=== PATIENT | female | born 1950 | race Caucasian/White ===

== ENCOUNTER 2018-03-03 00:36 | Outpatient (CLI) | payer MEDICARE, BC, SELFPAY ==
--- NOTE | 2018-03-03 07:39 | DI.US_ITS ---
SYMPTOMS/DIAGNOSIS: VAGINAL BLEEDING, POSTMENOPAUSAL, N95.0 PELVIC ULTRASOUND: Comparison is made with February,. A transabdominal exam was performed. Images are limited by lack of bladder distention. The uterus is not well seen due to pessary. The right ovary was not seen. The left ovary appears normal in size. There is no evidence of free fluid. Prominence of the right renal collecting system is again noted, unchanged from the previous exams. IMPRESSION: Limited exam. The endometrial stripe is not visualized. The right ovary is also unable to be visualized.
== END 2018-03-03 00:56 ==
PROVIDERS: PCP Nurse Practitioner Family; Visit Provider Obstetrics & Gynecology
DX: N95.0 Postmenopausal bleeding (principal)
CPT/HCPCS: 76856

== ENCOUNTER → 2018-04-09 12:57 | Outpatient (BNVA) | payer MEDICARE, BC, SELFPAY | PROVIDERS: PCP Nurse Practitioner Family; Visit Provider Internal Medicine Cardiovascular Disease | DX: I25.10 Atherosclerotic heart disease of native coronary artery without angina pectoris (principal); I10 Essential (primary) hypertension; E11.9 Type 2 diabetes mellitus without complications; Z79.84 Long term (current) use of oral hypoglycemic drugs; E78.5 Hyperlipidemia, unspecified | CPT/HCPCS: 99213 ==

== ENCOUNTER 2018-08-18 10:11 | Outpatient (CLI) | payer MEDICARE, BC, SELFPAY ==
[2018-08-18 10:41] LABS: Bilirubin Negative (Negative); Blood Trace-intact (Negative); Clarity Clear; Glucose Negative (Negative); Ketones Negative (Negative); Leukocyte Esterase Small (Negative); Nitrite Negative (Negative); Specific Gravity 1.015 (1.005-1.025); Urobilinogen 0.2 EU/dL (Up TO 0.2); pH 5.5 (5-8)
[2018-08-18 10:54] LABS: Bacteria Few HPF (Negative); Crystals Negative HPF (Negative); Epithelial Cells Few HPF (Negative); Mucus Moderate (Negative); Other Cells Few Renal (Negative)
[2018-08-18 10:55] LABS: C & S Indicated? C&S Done As Ordered; Casts Negative LPF (Negative)
== END 2018-08-18 10:31 ==
PROVIDERS: PCP Nurse Practitioner Family; Visit Provider Obstetrics & Gynecology
DX: N39.46 Mixed incontinence (principal)
CPT/HCPCS: 81003; 81015; 87086

== ENCOUNTER 2018-09-18 09:36 | Outpatient (REF) | payer MEDICARE, BC, SELFPAY ==
[2018-09-18 13:28] LABS: HCT 40.9 % (36.0-46.0); HGB 13.4 g/dL (12.0-15.5); Mean Corp. HGB Concentration 32.8 g/dL (32.0-36.0); Mean Corpuscular Hemoglobin 30.9 pg (27.0-33.0); Mean Corpuscular Volume 94.2 fL (80-95); Mean Platelet Volume 10.1 fL (8.0-11.0); Platelet Count 244 x1000/uL (130-400); RBC 4.34 m/cumm (4.00-5.20); RBC Distribution Width 13.5 % (11.7-14.6); White Blood Cell Count 4.63 k/cumm (4.4-10.8)
[2018-09-18 13:33] LABS: Iron 71 ug/dL (50-175); Total Iron Binding Capacity 259 ug/dL (250-450); Transferrin Sat 27 % (15-50)
[2018-09-18 13:48] LABS: Anion Gap 8.6 mmol/L (3-11); BUN 18 mg/dL (7-18); CO2 29.4 mmol/L (21.0-32.0); CREATININE 0.61 mg/dL (0.55-1.02); Chloride 104 mmol/L (98-107); Cholesterol 282 mg/dL (50-200); Ferritin 26 ng/mL (8-388); Glucose 80 mg/dL (70-100); HDL Cholesterol 97 mg/dL (40-60); LDL CHOLESTEROL 160 mg/dL (<100); Sodium 142 mmol/L (136-145); TSH (W/Ref FT4) 3.14 uIU/mL (0.358-3.74); Triglyceride 58 mg/dL (30-150)
[2018-09-18 13:54] LABS: Calcium 8.8 mg/dL (8.5-10.1)
[2018-09-21 07:40] LABS: Vitamin D 25 Total 48.9 ng/ml (30-100)
== END 2018-09-18 09:56 ==
LOC: NCHCN 09:36
PROVIDERS: PCP Nurse Practitioner Family; Visit Provider Nurse Practitioner Family
DX: E55.9 Vitamin D deficiency, unspecified (principal); D50.9 Iron deficiency anemia, unspecified; E11.9 Type 2 diabetes mellitus without complications; E03.9 Hypothyroidism, unspecified; E78.5 Hyperlipidemia, unspecified
CPT/HCPCS: 80048; 80061; 82306; 83721; 85027; 82728; 83540; 83550; 84443

== ENCOUNTER → 2018-12-24 08:57 | Outpatient (BNVA) | payer MEDICARE, BC, SELFPAY | PROVIDERS: Visit Provider Internal Medicine Cardiovascular Disease | DX: I25.10 Atherosclerotic heart disease of native coronary artery without angina pectoris (principal); I10 Essential (primary) hypertension; E78.2 Mixed hyperlipidemia; E11.9 Type 2 diabetes mellitus without complications; Z79.84 Long term (current) use of oral hypoglycemic drugs | CPT/HCPCS: 99214 ==

== ENCOUNTER 2019-03-24 01:08 | Outpatient (CLI) | payer MEDICARE, BC, SELFPAY ==
[2019-03-24 10:34] LABS: Calculated LDL 53 mg/dL; Cholesterol 157 mg/dL (50-200); HDL Cholesterol 96 mg/dL (40-60); Triglyceride 44 mg/dL (30-150)
== END 2019-03-24 01:28 ==
PROVIDERS: PCP Nurse Practitioner Family; Visit Provider Internal Medicine Cardiovascular Disease
DX: E78.5 Hyperlipidemia, unspecified (principal); I25.10 Atherosclerotic heart disease of native coronary artery without angina pectoris
CPT/HCPCS: 36415; 80061

== ENCOUNTER 2019-11-30 09:41 | Outpatient (REF) | payer MEDICARE, BC, SELFPAY ==
[2019-11-30 14:37] LABS: HCT 39.7 % (36.0-46.0); Mean Corp. HGB Concentration 32.7 g/dL (32.0-36.0); Mean Corpuscular Hemoglobin 29.3 pg (27.0-33.0); Mean Corpuscular Volume 89.4 fL (80-95); Mean Platelet Volume 10.3 fL (8.0-11.0); Platelet Count 252 x1000/uL (130-400); RBC 4.44 m/cumm (4.00-5.20); RBC Distribution Width 15.2 % (11.7-14.6); White Blood Cell Count 4.63 k/cumm (4.4-10.8)
[2019-11-30 14:42] LABS: Anion Gap 5.1 mmol/L (3-11); BUN 13 mg/dL (7-18); CO2 30.9 mmol/L (21.0-32.0); CREATININE 0.62 mg/dL (0.55-1.02); Calcium 9.1 mg/dL (8.5-10.1); Chloride 104 mmol/L (98-107); Glucose 97 mg/dL (74-106); Sodium 140 mmol/L (136-145); TSH (W/Ref FT4) 1.54 uIU/mL (0.36-3.74)
== END 2019-11-30 10:01 ==
LOC: NCHCN 09:41
PROVIDERS: PCP Nurse Practitioner Family; Visit Provider Nurse Practitioner Family
DX: E03.9 Hypothyroidism, unspecified (principal); D50.9 Iron deficiency anemia, unspecified; I10 Essential (primary) hypertension
CPT/HCPCS: 80048; 85027; 84443

== ENCOUNTER → 2020-01-28 08:07 | Outpatient (BNVA) | payer MEDICARE, BC, SELFPAY | PROVIDERS: PCP Nurse Practitioner Family; Referring Provider Nurse Practitioner Family; Visit Provider Physical Therapy Assistant | DX: Z12.11 Encounter for screening for malignant neoplasm of colon (principal); E11.9 Type 2 diabetes mellitus without complications; I10 Essential (primary) hypertension; Z79.84 Long term (current) use of oral hypoglycemic drugs ==

== ENCOUNTER 2020-02-14 10:14 | Day surgery (SDC) | payer MEDICARE, BC, SELFPAY ==
--- NOTE | 2020-02-14 06:49 | W.COLOREPORT ---
Date of service: 02/14/20 Time of Service: 11:37 Colonoscopy Report Date of procedure: 02/14/20 Pre-op diagnosis general: Colon Cancer Screening Post-op diagnosis procedure note: same (moderate sigmoid diverticulosis) Procedure: Colonoscopy Surgeon: Radha Betancur Anesthesia proc note operative: other (General/ ASA 2/Mateus Polo CRNA) Estimated blood loss (mL): 0 Pathology: none sent Complications: None Disposition: same day Indications: The patient is here for Colonoscopy pre-op. Her last screening was in 2008 and was unremarkable. She has no family history of colon cancer. She has not had any bowel habit changes. -Discussed colonoscopy bowel prep as well as the procedure. Discussed possible complications of the procedure to include bleeding, pain, perforation, missed small lesion/polyp, sore throat, aspiration and adverse reaction to the medications. Questions were answered to patient?s satisfaction. No guarantees were implied or given. Prep: Miralax/Dulcolax Procedure Start Time: 11:37 Procedure End Time: 12:01 Retraction Time: 12 minutes Findings: Moderate sigmoid diverticulosis Procedure Description: After informed consent was obtained the patient was taken to the procedure room and placed in a left decubitous position. Monitors were applied and a time out was done. The patients name, date of , procedure, allergies to medications and metal in their body was reviewed. The patient was then sedated. Once sedated and comfortable a rectal exam was done. External exam was normal. Internal exam revealed a normal sphincter tone and no palpable masses. The scope was then introduced and retro-flexed. No internal hemorrhoids were identified. The scope was then advanced to the cecum with some difficulty due to a tortuous colon. The ileocecal vlave and appendiceal orifice were identified. The prep was good. The scope was then slowly retracted over 12 minutes back into the rectum. There were no polyps. There was moderate diverticulosis of the sigmoid colon. The scope was removed and the patient was woken up and taken back to Same day surgery in stable condition. The patient tolerated the procedure well and there were no immediate complications. Follow up: The patient should follow up in 10 years unless they develop changes in bowel habits or other new gastrointestinal complaints.
--- NOTE | 2020-02-14 06:50 | W.PM.DSUDISC ---
Discharge Plan Disposition Patient Disposition: HOME Condition: Good Discharge Details Reason For Visit: Colonoscopy Attending Provider: Radha Betancur Primary Care Provider: Mini Hernandez Home Meds and New Rx's Prescriptions: Continued estradiol 0.01 % (0.1 mg/gram) cream 1 gm VG .2X/WEEK RF: 0 olopatadine 0.1 % drops 1 drp OP BID RF: 0 ezetimibe 10 mg tablet 10 mg PO DAILY 90 Days Qty: 90 RF: 2 ascorbic acid (vitamin C) 500 mg tablet extended release 1,000 mg PO DAILY RF: 0 coenzyme Q10 [Co Q-10] 10 mg capsule 10 mg PO ONCE RF: 0 multivitamin [One Daily] 1 EACH tablet 1 ea PO DAILY RF: 0 aspirin [Ecotrin Low Strength] 81 MG tablet,delayed release (DR/EC) 1 tab PO DAILY Qty: 190 RF: 4 nitroglycerin [Nitrostat] 0.4 MG tablet, sublingual 0.4 mg Sublingual PRN Qty: 25 RF: 4 Zyrtec 10 MG capsule 10 mg PO DAILY Qty: 90 RF: 4 FLONASE 16 GM SPRAY.SUSP 1 spray NS DAILY PRNQty: 3 RF: 4 levothyroxine [Synthroid] 100 MCG tablet 100 mcg PO DAILY Qty: 90 RF: 4 losartan [Cozaar] 50 MG tablet 50 mg PO QAM Qty: 90 RF: 4 metformin 500 MG tablet 500 mg PO ONCE RF: 0 cholecalciferol (vitamin D3) 1,000 UNIT tablet 1,000 unit PO DAILY Qty: 3 RF: 0 amlodipine 5 mg tablet 2.5 mg PO DAILY Qty: 90 RF: 3 Discontinued polyethylene glycol 3350 17 gram/dose powder 238 g PO ONCE Qty: 238 RF: 0 bisacodyl [Dulcolax (bisacodyl)] 5 mg tablet,delayed release (DR/EC) 5 mg PO ONCE Qty: 4 RF: 0 No Action atorvastatin 80 mg tablet 80 mg PO HS RF: 0 Discharge Instructions Instructions: Diverticulosis (DC) Additional Instructions: Findings: moderate diverticulosis Follow up: 10 years Please call if you develop: fevers >101.5 Nausea or Vomiting Abdominal pain that is not transient DAY SURGERY UNIT POST ENDOSCOPY INSTRUCTIONS 1. Because there will be medication in your system for the next 24 hours, you may feel a little sleepy. Your coordination will be affected. Therefore: a. Do not drive or operate dangerous equipment for 24 hours. b. Do not drink alcohol beverages for 24 hours (not even beer). c. Plan to go home and rest for the day. 2. Generally there are no restrictions on your activity after a day or so has gone by, but you may feel a bit fatigued for a few days. 3 After you arrive home you may have a light meal and return to a normal diet as you can tolerate it without feeling sick to your stomach. 4. After surgery, you may feel pain or discomfort. This should be only transient, but if it persists please contact your doctor. 5. If there are any questions regarding the findings of your procedure, please feel free to contact your doctor. 6. If you are unable to contact your doctor with a problem, contact the hospital at [phone]. 7. Continue all your regular medications unless directed otherwise. I understand the above instructions and have no questions. Signature of Patient or Responsible Adult Escort Date/Time Name of Responsible Adult Escort Signature of Nurse Date/Time Activity:: Activity as Tolerated Diet:: High Fiber diet Discharge Orders Discharge Orders: Discharge Order (Routine); Ordered 02/14/20 Ordered By: Radha Betancur
[2020-02-14 10:38] VITALS: BP 126/74; PULSE 80; RESP 18; TEMP 36.5; O2SAT 98
[2020-02-14] MEDS: Lactated Ringers 1,000 ML 80 ML IV ×2 (11:18→11:39)
[2020-02-14 12:35] VITALS: BP 119/70; PULSE 82; RESP 17; TEMP 36.2; O2SAT 99
== END 2020-02-14 13:08 | disposition home or self-care (01) ==
LOC: SUR 10:15
PROVIDERS: PCP Nurse Practitioner Family; Visit Provider Surgery
PROC: 0DJD8ZZ Inspection of Lower Intestinal Tract, Via Natural or Artificial Opening Endoscopic (ICD-10-PCS; CPT 45378; principal; 2020-02-14 11:30)
DX: Z12.11 Encounter for screening for malignant neoplasm of colon (principal); E11.9 Type 2 diabetes mellitus without complications; E03.9 Hypothyroidism, unspecified; I10 Essential (primary) hypertension; K57.30 Diverticulosis of large intestine without perforation or abscess without bleeding
CPT/HCPCS: G0121; J2001

== ENCOUNTER 2020-05-30 10:46 | Outpatient (REF) | payer MEDICARE, BC, SELFPAY ==
[2020-05-30 14:21] LABS: Hemoglobin A1C 6.4 % (<5.7)
[2020-05-30 14:28] LABS: Calculated LDL 59 mg/dL (<100); Cholesterol 178 mg/dL (<200); HDL Cholesterol 109 mg/dL (40-60); Triglyceride 54 mg/dL (<150)
== END 2020-05-30 11:06 ==
LOC: NCHCN 10:46
PROVIDERS: PCP Nurse Practitioner Family; Visit Provider Nurse Practitioner Family
DX: E11.9 Type 2 diabetes mellitus without complications (principal); E78.5 Hyperlipidemia, unspecified
CPT/HCPCS: 80061; 83036

== ENCOUNTER 2020-06-29 11:00 | Outpatient (CLI) | payer MEDICARE, BC, SELFPAY ==
--- NOTE | 2020-06-29 11:15 | RT.EKG_ITS ---
APPROVED REPORT Exam: Resting ECG Patient Location: O HR:88 bpm ECG Measurements Heart Rate 88 AXIS WA 120 P 44 QRSd 87 QRS -9 QT 369 T -7 QTc 447 Conclusion Sinus rhythm...normal P axis, V-rate 50- 99 Multiform ventricular premature complexes...short R-R, variable morphology Probable left atrial enlargement...P >50mS, <-0.10mV V1 Low voltage, precordial leads...precordial leads <1.0mV Borderline T abnormalities, inferior leads...T flat/neg, II III aVF Baseline wander in lead(s) V4
== END 2020-06-29 11:01 | disposition home or self-care (01) ==
LOC: DI.CARD 11:18
PROVIDERS: PCP Nurse Practitioner Family; Referring Provider Nurse Practitioner Family; Visit Provider Internal Medicine Cardiovascular Disease
DX: I25.10 Atherosclerotic heart disease of native coronary artery without angina pectoris (principal); I25.2 Old myocardial infarction
CPT/HCPCS: 93010

== ENCOUNTER → 2020-06-29 11:00 | Outpatient (BNVA) | payer MEDICARE, BC, SELFPAY | PROVIDERS: PCP Nurse Practitioner Family; Referring Provider Nurse Practitioner Family; Visit Provider Internal Medicine Cardiovascular Disease | DX: I25.10 Atherosclerotic heart disease of native coronary artery without angina pectoris (principal); E78.2 Mixed hyperlipidemia; I10 Essential (primary) hypertension | CPT/HCPCS: 99214 ==

== ENCOUNTER 2020-08-02 02:34 | Outpatient (CLI) | payer MEDICARE, BC, SELFPAY ==
--- NOTE | 2020-08-02 10:12 | DI.US_ITS ---
APPROVED REPORT EXAM: Comprehensive 2D, Doppler, and color-flow Echocardiogram Patient Location: Out-Patient Indications: SOB, CAD Other Information Study Quality: Adequate Conclusion Left Ventricle : The left ventricle is normal size. The left ventricular systolic function is normal. The left ventricular ejection fraction is within the normal range. There is normal left ventricular wall thickness. There is normal LV segmental wall motion. The left ventricular diastolic function is normal. LVEF is 55%. Right Ventricle : The right ventricle is normal size. The right ventricular systolic function is norm al. The RVSP is 26.5mmHg. Atria : The left atrium size is normal. The right atrium size is normal. Mitral Valve : Moderate mitral annular calcification. Mild mitral regurgitation. No evidence of le l valve stenosis. Great Vessels : The aortic root is normal in size. The ascending aorta is mildly dilated. Aortic arch is normal in caliber. IVC is normal in size and collapses >50% with inspiration. See remainder of study for further details. Wall motion Left Ventricle The left ventricle is normal size. The left ventricular systolic function is normal. The left ventric ular ejection fraction is within the normal range. There is normal left ventricular wall thickness. T here is normal LV segmental wall motion. The left ventricular diastolic function is normal. There is no ventricular septal defect visualized. LVEF is 55%. Right Ventricle The right ventricle is normal size. The right ventricular systolic function is normal. The RVSP is 26 .5mmHg. Atria The left atrium size is normal. The right atrium size is normal. The interatrial septum is intact wit h no evidence for an atrial septal defect. Aortic Valve The Aortic valve is sclerotic. Aortic valve is trileaflet. There is no aortic valvular stenosis. Trac e aortic regurgitation. Mitral Valve Moderate mitral annular calcification. No evidence of mitral valve stenosis. Mild mitral regurgitatio n. Tricuspid Valve The tricuspid valve is normal in structure. There is no tricuspid valve stenosis. Trace tricuspid reg urgitation. Pulmonic Valve The pulmonary valve is normal in structure. There is no pulmonic valvular stenosis. Trace pulmonic re gurgitation. Great Vessels The aortic root is normal in size. The ascending aorta is mildly dilated. Aortic arch is normal in ca liber. IVC is normal in size and collapses >50% with inspiration. Pericardium There is no pericardial effusion. 2D Dimensions IVSD d PLAX 0.82 cm F: 0.6-1.0 LV Vol A2C d MOD 132.4 mL LVPW d PLAX 0.85 cm F: 0.6 - 1.0 LV Vol A4C d MOD 125.7 mL LVID d PLAX 5.09 cm F: 3.8 - 5.2 LA vol/ BSA A2C s A-L 22.8 mL/m2 LVDs 3.65 cm F: 2.2 - 3.5 LA vol/ BSA A4C s A-L 30.1 mL/m2 Ao Root d 2.86 cm F: 2.7 - 3.3 LA Vol/ BSA Biplane s A-L 26.9 mL/m2 RA Area A4C 11.64 cm2 LA Area A4C s MOD 17.87 cm2 RA Vol/ BSA A4C s A-L 13.2 mL/m2 LA Area A2C s MOD 15.17 cm2 Ao Asc Diam d 3.67 cm F: 2.3 - 3.1 LV EF A4C MOD 55.1 % LV EF Teichholz 53.8 % LV EF A2C MOD 52.5 % LVEF (Berumen's) 53.54 % F: 54 - 74 LV EF Biplane MOD 53.5 % LV Volume 100.92 mL F: 46 - 106 SV 69.18 mL LV Volume Index 56.69 mL/m2 F: 29 - 61 SV Index 38.89 mL/m2 LV Vol Biplane MOD 129.2 mL FS 27.90 % M-Mode TAPSE 2.02 cm (M/F) >1.7 LV Diastology MV E' medial 0.061 (>0.07 m/s) E/A Ratio 0.8 LV E/e MED 12.30 (<14) MV E Vmax 0.75 (0.4-1.3 m/s) MV E' lateral 0.103 (>0.1 m/s) MV A Vmax 0.95 (0.4-1.3 m/s) LV E/e LAT 7.30 (<14) MV E/A Ratio 0.77 MV E/E' medial 12.34 MV E/E' lateral 7.34 Aortic Valve LVOT Area 3.21 cm2 AoV Area Vmax 2.69 cm2 LVOT Vmax 1.13 m/s AoV Area/ BSA (Vmax) 1.51 cm2/m2 LVOT Mean Danyel. 0.74 m/s LOUISE Mean Danyel. 2.37 cm2 LVOT Peak Grad 5.1 mmHg LOUISE Mean Danyel. Index 1.33 cm2/m2 LVOT Mean Grad 2.6 mmHg LVOT VTI 0.262 m LVOT Diam s 2.00 cm AoV Vmax 1.35 m/s Velocity Ratio 0.83 AoV Mean Danyel. 0.99 m/s AoV Peak Grad 7.3 mmHg LVOT SV 84.03 mL AoV Mean Grad 4.3 mmHg AoV VTI 0.293 m AoV Area VTI 2.87 cm2 AoV Area/ BSA (VTI) 1.61 cm/m2 Mitral Valve MV DT 178 (160-240 msec) MR Vmax 3.00 m/s MV PHT 52 msec MR VTI 1.096 m MV Area PHT 4.26 cm2 MR Peak Grad 36.0 mmHg MV VTI 0.266 m MR Mean Grad 30.4 mmHg MV VTI Annulus 0.266 m MR PISA Radius 0.30 cm MV Area VTI 3.16 (4.0-6.0 cm2) MR EROA 0.06 cm2 MR Aliasing Velocity 0.35 m/s MR PISA 0.55 cm2 Pulmonary Valve PV Vmax 0.88 (0.5-1.5 m/s) RVOT Peak Gr. 1.44 mmHg PV Peak Grad 3.1 mmHg RVOT Mean Gr. 0.80 mmHg PV Mean Grad 1.9 mmHg RVOT VTI 0.118 m PV VTI 0.184 m RVOT Vmax 0.60 m/s Tricuspid Valve TR Peak Grad 23.5 mmHg TR Vmax 2.42 m/s RA Pressure 3.00 mmHg RVSP (TR) 26.5 mmHg
== END 2020-08-02 02:54 ==
PROVIDERS: PCP Nurse Practitioner Family; Visit Provider Internal Medicine Cardiovascular Disease
DX: I25.10 Atherosclerotic heart disease of native coronary artery without angina pectoris (principal); I34.0 Nonrheumatic mitral (valve) insufficiency; I77.810 Thoracic aortic ectasia
CPT/HCPCS: 93306

== ENCOUNTER 2020-08-10 01:28 | Outpatient (CLI) | payer MEDICARE, BC, SELFPAY ==
--- NOTE | 2020-08-10 07:00 | DI.NM_ITS ---
APPROVED REPORT Exam: Exercise Treadmill Patient Location: Out-Patient Room/Bed: Stress Nurse: Zenaida Kitchen RN Ordering Provider:DARIAN BORREGO, Contact Number: [phone] BMI: 24.88 Baseline Rhythm: Sinus Rhythm Comment: occasional PVC Indications: SOB, CAD Medical History Medical History: CAD s/p RCA stent, hypertension, hyperlipidemia, diabetes, hypothyroidism, depressio n, osteoarthritis Cardiac Medications: Amlodipine, aspirin, atorvastatin, levothyroxine, metformin, nitroglycerin SL, o lopatadine Allergies: lisinopril, prednisone, ramipril Cardiac Risk Factors: Hypertension, hyperlipidemia, diabetes, asthma, CAD, family hx Previous Cardiac Procedures: RCA stent (1999) Pretest Chest Pain Characteristics: None Exercise History: Physically active Physical Disabilities: None Lung Sounds: Clear to auscultation Heart Sounds: Regular Stress Test Details Test: Exercise stress testing was performed using a Elfego protocol. Nuclear Acquisition: Rest Tc-99m/Stress Tc-99m 1 day Rest Isotope: Tc-99m Sestamibi. Dose: 11.2 Date: 08/10/2020 Injection Time: 0900 Stress Isotope: Tc-99m Sestamibi. Dose: 36.0 Date: 08/10/2020 Injection Time: 1042 HR Resting HR Supine: 74 bpm Max Heart Rate (APMHR): 150 bpm Resting HR Standin bpm Target HR (85% APMHR): 127 bpm Max HR Achieved: 160 bpm % of APMHR: 106 Recovery HR: 96 bpm HR response to stress: Normal HR response to stress BP Resting BP Supine: 142/84 mmHg Resting BP Standin/88 mmHg Max BP: 178/78 mmHg Recovery BP: 134/80 mmHg BP response to stress: Normal blood pressure response to stress. ECG Resting ECG: Sinus Rhythm Ectopy: Occasional PVC Stress ECG: Sinus Tachycardia ST Change: No significant ST segment changes noted Arrhythmia: Frequent multifocal PVCs, prolonged duration of bigeminy as exercise capacity increase d Recovery ECG: Sinus Rhythm Recovery ST Change: No significant ST segment changes noted Recovery Arrhythmia: Frequenct multifocal PVCs, bigeminy Clinical Reason for Termination: Fatigue Stress Symptoms: Dyspnea, General Fatigue Exercise duration: 9 min03 sec Highest Stage Reached: Stage 4: 4.2 mph at 16% grade. Exercise capacity: 10.22 METs Rate Pressure Product: 51737 Stress ECG Conclusion 1. The patient exercised for 9 minutes (10 METS). The patient no symptoms suggestive of ischemia. 2. The patient's blood pressure and heart rate augmented appropriately. 3. There is no evidence of ischemia on the ECG portion exam. Patient did have frequent PVCs. Stress Test Summary STAGE Time (mins) Speed (mph) Grade (%) HR BP SYMPTOMS METS Supine 74 142/84 Standing 86 152/88 1 3 1.7 10 130 160/88 4.6 2 6 2.5 12 145 174/80 mild/moderate SOB, SPO2 98% 7 1 min recovery 146 178/78 symptoms resolved 3 min recovery 111 158/80 6 min recovery 96 134/80 MPI Conclusion The ejection fraction was 47% with stress with hypokinesis of the basal and mid inferior wall. There is a small predominantly fixed perfusion defect of the basal inferior wall as well as the apex. This represents an abnormal stress test.
== END 2020-08-10 01:48 ==
PROVIDERS: PCP Nurse Practitioner Family; Visit Provider Internal Medicine Cardiovascular Disease
DX: I25.10 Atherosclerotic heart disease of native coronary artery without angina pectoris (principal); R06.02 Shortness of breath; I10 Essential (primary) hypertension; E78.5 Hyperlipidemia, unspecified; E11.9 Type 2 diabetes mellitus without complications; J45.909 Unspecified asthma, uncomplicated; Z82.49 Family history of ischemic heart disease and other diseases of the circulatory system
CPT/HCPCS: 78452; 93016; 93018; 93017

== ENCOUNTER → 2020-08-15 13:03 | Outpatient (BNVA) | payer MEDICARE, BC, SELFPAY | PROVIDERS: PCP Nurse Practitioner Family; Referring Provider Nurse Practitioner Family; Visit Provider Internal Medicine Cardiovascular Disease | DX: I25.10 Atherosclerotic heart disease of native coronary artery without angina pectoris (principal); Z95.5 Presence of coronary angioplasty implant and graft; I10 Essential (primary) hypertension; I49.3 Ventricular premature depolarization; E78.5 Hyperlipidemia, unspecified | CPT/HCPCS: 99214 ==

== ENCOUNTER 2020-09-08 10:52 | Outpatient (REF) | payer MEDICARE, BC, SELFPAY ==
[2020-09-08 15:27] LABS: HCT 39.1 % (36.0-46.0); HGB 12.9 g/dL (11.2-15.7); MCH 30.6 pg (27.0-33.0); MCV 92.9 fL (80-95); Platelet Count 236 10^3/uL (130-400); RBC 4.21 10^6/uL (3.93-5.22); RDW 13.3 % (11.7-14.6); RDW-SD 45.7 fL
== END 2020-09-08 10:53 | disposition home or self-care (01) ==
LOC: NCHCN 10:52
PROVIDERS: PCP Nurse Practitioner Family; Visit Provider Nurse Practitioner Family
DX: R06.09 Other forms of dyspnea (principal)
CPT/HCPCS: 85027

== ENCOUNTER 2020-10-12 03:56 | Outpatient (CLI) | payer MEDICARE, BC, SELFPAY ==
--- NOTE | 2020-10-27 08:28 | ZIOP_ITS ---
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 Rhythm throughout with sinus. Average heart rate was 92, minimum 56, maximum 142 there were rare atrial Premature beats. There were a total of 13 episodes of self-limited atrial runs, the longest of which was 9 beats in duration There were frequent premature ventricular contractions. They comprised 8.72% of total beats. Periods of bigeminy and trigeminy were noted. There were several very brief runs of nonsustained ventricular tachycardia, less than 5 beats in length. There was one 12 beat run of nonsustained ventricular tachycardia which was asymptomatic There was no atrial fibrillation, no high-grade AV block, no pauses greater than 3 seconds Most patient symptoms corresponded to sinus rhythm and sinus tachycardia, occasionally to PVCs
== END 2020-10-12 03:57 | disposition home or self-care (01) ==
LOC: RT 03:57
PROVIDERS: PCP Nurse Practitioner Family; Visit Provider Nurse Practitioner Family
DX: I49.3 Ventricular premature depolarization (principal)
CPT/HCPCS: 93246

== ENCOUNTER 2020-10-27 08:28 | Outpatient (CLI) | payer MEDICARE, BC, SELFPAY | END 2020-10-27 08:29 | LOC: CARDO 12-29 15:57 | PROVIDERS: PCP Nurse Practitioner Family; Referring Provider Nurse Practitioner Family; Visit Provider Internal Medicine Cardiovascular Disease | DX: I49.3 Ventricular premature depolarization (principal); I49.1 Atrial premature depolarization; I47.2 Ventricular tachycardia | CPT/HCPCS: 93248 ==

== ENCOUNTER → 2020-11-10 09:13 | Outpatient (BNVA) | payer MEDICARE, BC, SELFPAY | PROVIDERS: PCP Nurse Practitioner Family; Referring Provider Nurse Practitioner Family; Visit Provider Internal Medicine Cardiovascular Disease | DX: I25.10 Atherosclerotic heart disease of native coronary artery without angina pectoris (principal); E11.9 Type 2 diabetes mellitus without complications; I10 Essential (primary) hypertension; Z79.899 Other long term (current) drug therapy | CPT/HCPCS: 99214 ==

== ENCOUNTER 2020-11-28 20:00 | Outpatient (REF) | payer MEDICARE, BC, SELFPAY ==
[2020-11-28 23:54] LABS: BUN 15 mg/dL (7-18); CREATININE 0.7 mg/dL (0.55-1.02); Calcium 8.7 mg/dL (8.5-10.1); Chloride 106 mmol/L (98-107); Glucose 108 mg/dL (74-106); Potassium 4.1 mmol/L (3.5-5.1); Sodium 142 mmol/L (136-145); TSH 0.79 uIU/mL (0.36-3.74)
== END 2020-11-28 20:01 | disposition home or self-care (01) ==
LOC: NCHCN 20:00
PROVIDERS: PCP Nurse Practitioner Family; Visit Provider Nurse Practitioner Family
DX: E03.9 Hypothyroidism, unspecified (principal)
CPT/HCPCS: 80048; 84443

== ENCOUNTER 2020-12-04 15:22 | Outpatient (CLI) | payer MEDICARE, BC, SELFPAY ==
--- NOTE | 2020-12-04 15:20 | DI.RAD_ITS ---
Exam(s) XR KNEE RT 4V AP,LAT,SMOOTH,PAT EXAM: XR KNEE RT 4V AP,LAT,SMOOTH,PAT CLINICAL HISTORY: new pain. TECHNIQUE: 2D digital imaging was performed. COMPARISON: CR RIGHT KNEE 3 VIEWS from 09/20/2014 FINDINGS: There is no evidence of fracture but there does appear to be a joint effusion. Significant degenerat keyanna changes are noted in medial compartment including joint space narrowing and marginal osteophytes. Lesser amount of narrowing is noted in the lateral compartment. Moderate degenerative changes note d in the patellofemoral compartment. No significant osseous lesions. IMPRESSION: Degenerative changes. DATA REPOSITORY: RADIATION DOSE DELIVERED:
--- NOTE | 2020-12-04 15:23 | DI.RAD_ITS ---
Exam(s) XR KNEE LT 4V AP,LAT,SMOOTH,PAT EXAM: XR KNEE LT 4V AP,LAT,SMOOTH,PAT CLINICAL HISTORY: new pain. TECHNIQUE: 2D digital imaging was performed. COMPARISON: CR XR KNEE RT 4V AP,LAT,SMOOTH,PAT from 12/04/2020 FINDINGS: There is no evidence fracture although there does appear to be small joint effusion. Moderate degene rative changes are noted in the medial compartment including joint space narrowing and marginal osteo phytes. Lateral compartment appears unremarkable. Mild degenerative changes in the patellofemoral c ompartment. No osseous lesions IMPRESSION: Degenerative changes. DATA REPOSITORY: RADIATION DOSE DELIVERED:
== END 2020-12-04 15:23 | disposition home or self-care (01) ==
LOC: DIORS 15:23
PROVIDERS: PCP Nurse Practitioner Family; Referring Provider Nurse Practitioner Family; Visit Provider Student in an Organized Health Care Education/Training Program
DX: M17.11 Unilateral primary osteoarthritis, right knee (principal); M17.12 Unilateral primary osteoarthritis, left knee; M25.561 Pain in right knee; M25.562 Pain in left knee
CPT/HCPCS: 99215; 73564

== ENCOUNTER 2021-02-06 10:28 | Outpatient (CLI) | payer MEDICARE, BC, SELFPAY ==
--- NOTE | 2021-02-06 10:00 | DI.RAD_ITS ---
Exam(s) XR STANDING ALIGNMENT EXAM: XR STANDING ALIGNMENT CLINICAL HISTORY: preop. TECHNIQUE: 2D digital imaging was performed. Four views were obtained. COMPARISON: CR XR KNEE RT 4V AP,LAT,SMOOTH,PAT from 12/04/2020 CR XR KNEE LT 4V AP,LAT,SMOOTH,PAT from 12/04/2020 CR XR KNEE RT 4V AP,LAT,SMOOTH,PAT from 12/04/2020 FINDINGS: BONES: No acute fracture is present. No bony destructive lesion is seen. Moderately severe degenerati ve changes are seen in the right knee particularly the medial joint compartment. Joint space narrowi ng and periarticular spurring is present. Moderate degenerative changes are seen in the left knee wi th joint space narrowing and periarticular spurring seen in the medial femoral tibial joint. The lef t lower extremity measures 88.5 cm. The right lower extremity measures 88.2 cm. SOFT TISSUE: Normal. IMPRESSION: Osteoarthritis of the knees. DATA REPOSITORY: RADIATION DOSE DELIVERED:
== END 2021-02-06 10:29 | disposition home or self-care (01) ==
LOC: DIORS 10:28
PROVIDERS: PCP Nurse Practitioner Family; Referring Provider Nurse Practitioner Family; Visit Provider Physician Assistant Surgical
DX: M17.12 Unilateral primary osteoarthritis, left knee (principal); Z01.818 Encounter for other preprocedural examination; I25.10 Atherosclerotic heart disease of native coronary artery without angina pectoris; Z95.5 Presence of coronary angioplasty implant and graft; I10 Essential (primary) hypertension
CPT/HCPCS: 77073

== ENCOUNTER 2021-02-12 02:48 | Outpatient (CLI) | payer MEDICARE, BC, SELFPAY ==
[2021-02-12 11:04] LABS: Source Nasal/Nares
[2021-02-12 16:00] LABS: COVID-19 PCR Negative (Negative)
== END 2021-02-12 02:49 | disposition home or self-care (01) ==
PROVIDERS: PCP Nurse Practitioner Family; Visit Provider Student in an Organized Health Care Education/Training Program
DX: Z20.822 Contact with and (suspected) exposure to COVID-19 (principal); Z01.818 Encounter for other preprocedural examination
CPT/HCPCS: 36415; 80048; 85027; 87635

== ENCOUNTER 2021-02-12 03:56 | Outpatient (CLI) | payer MEDICARE, BC, SELFPAY ==
[2021-02-12 09:39] LABS: HCT 40.3 % (36.0-46.0); HGB 13.2 g/dL (11.2-15.7); MCH 30.6 pg (27.0-33.0); MCHC 32.8 % (32.0-36.0); MCV 93.5 fL (80-95); MPV 9.3 fL (8.0-11.0); Platelet Count 257 10^3/uL (130-400); RBC 4.31 10^6/uL (3.93-5.22); RDW 12.9 % (11.7-14.6); RDW-SD 44.6 fL; WBC 6.74 10^3/uL (4.4-10.8)
[2021-02-12 10:12] LABS: Anion Gap 2.8 mmol/L (3-11); BUN 18 mg/dL (7-18); CO2 31.2 mmol/L (21.0-32.0); CREATININE 0.8 mg/dL (0.55-1.02); Chloride 106 mmol/L (98-107); Glucose 101 mg/dL (74-106); Potassium 3.9 mmol/L (3.5-5.1); Sodium 140 mmol/L (136-145)
== END 2021-02-12 03:57 | disposition home or self-care (01) ==
PROVIDERS: PCP Nurse Practitioner Family; Visit Provider Student in an Organized Health Care Education/Training Program
DX: M25.562 Pain in left knee (principal); M17.12 Unilateral primary osteoarthritis, left knee; Z01.818 Encounter for other preprocedural examination; Z01.812 Encounter for preprocedural laboratory examination
CPT/HCPCS: 36415; 80048; 85027

== ENCOUNTER 2021-02-13 06:05 | Day surgery (SDC) | payer MEDICARE, BC, SELFPAY ==
[2021-02-13] VITALS (11 sets, daily range): BP systolic 109–130; BP diastolic 48–93; PULSE 61–93; RESP 12–18; TEMP 36–36.6; O2SAT 97–100; BMI 26.6
--- NOTE | 2021-02-13 06:52 | W.ANESPRE ---
General Info Date of Service Date Performed: 02/13/21 Height: 5 ft 3 in Weight: 68.2 kg Body Mass Index (BMI): 26.6 Surgical Procedure: Operation Date: 02/13/21 07:55 Proposed Procedures Side Surgeon p Knee Total Arthroplasty Left Antwan Carlos MD Meds Allergies and Home Medications Allergies Allergy/AdvReac Type Severity Reaction Status Date / Time prednisone AdvReac Intermediate MANIC Verified 02/09/21 09:30 lisinopril AdvReac COUGH Verified 02/09/21 09:30 ramipril [From Altace] AdvReac Dry cough Verified 02/09/21 09:30 environmental Allergy Intermediate headache, Uncoded 02/09/21 09:30 itchy eyes, congestion Home Medication Medication Instructions Recorded Flonase 1 spray NS DAILY PRN #3 spray 10/20/12 Zyrtec 10 mg PO DAILY #90 10/20/12 multivitamin [One Daily] 1 ea PO DAILY 10/20/12 nitroglycerin [Nitrostat] 0.4 mg SUBLINGUAL PRN #25 10/20/12 levothyroxine [Synthroid] 100 mcg PO DAILY #90 tab-cap 08/16/15 cholecalciferol (vitamin D3) 1,000 unit PO DAILY #3 09/11/16 ascorbic acid (vitamin C) 500 mg 1,000 mg PO DAILY 04/09/18 tablet,extended release estradiol 1 gm VG .2X/WEEK gm 12/24/18 ezetimibe 10 mg tablet 10 mg PO DAILY 90 Days #90 tab 12/24/18 atorvastatin 80 mg PO HS 02/14/20 amlodipine 2.5 mg tablet 2.5 mg PO BID #60 tab 07/21/20 coenzyme Q10 10 mg capsule 10 mg PO DAILY cap 08/15/20 losartan 50 mg tablet 50 mg PO BID #90 tab 08/15/20 metformin 500 mg tablet 500 mg PO DAILY tab-cap 08/15/20 diltiazem HCl 120 mg 120 mg PO DAILY #90 cap 11/10/20 capsule,extended release 24 hr acetaminophen 500 mg PO Q6H PRN #60 tab 02/13/21 aspirin 81 mg PO BID 30 Days #60 tab 02/13/21 celecoxib [Celebrex] 200 mg PO BID #30 cap 02/13/21 docusate sodium [Colace] 100 mg PO BID #30 cap 02/13/21 gabapentin 300 mg PO QHS #14 cap 02/13/21 oxycodone 5 mg PO Q4H PRN #18 tab 02/13/21 pantoprazole 40 mg PO DAILY 30 Days #30 tab 02/13/21 Current Visit Medications: Current Medications Generic Name Dose Route Start Last Admin Trade Name Freq PRN Reason Stop Dose Admin Acetaminophen 1,000 mg 02/13/21 06:00 Acetaminophen 500 Mg Tab PO 02/13/21 16:00 PREOP ART Celecoxib 400 mg 02/13/21 06:00 Celecoxib 200 Mg Cap PO 02/13/21 16:00 PREOP ART Gabapentin 300 mg 02/13/21 06:00 Gabapentin 300 Mg Cap PO 02/13/21 16:00 PREOP ART Tranexamic Acid 1,000 mg/ 60 mls @ 360 mls/hr 02/13/21 06:00 Sodium Chloride IVPB 02/13/21 16:00 PREOP ART Tranexamic Acid 1,000 mg/ 60 mls @ 360 mls/hr 02/13/21 06:00 Sodium Chloride IVPB 02/13/21 16:00 DIRECTED ART Ringer's Solution 1,000 mls @ 80 mls/hr 02/13/21 06:00 IV 03/14/21 23:59 INFUSION ART Cefazolin Sodium/Dextrose 2 gm in 50 mls @ 100 mls/hr 02/13/21 06:00 Ancef Duplex IVPB 02/13/21 23:59 PREOP ART IV Miscellaneous Supplies 1 each 02/13/21 06:00 Iv Access IV 03/14/21 23:59 DIRECTED ART Sodium Chloride 0 ml 02/13/21 06:00 Normal Saline Flush 10 Ml Syr IV 03/14/21 23:59 PRN PRN Sodium Chloride 0 ml 02/13/21 06:00 Normal Saline 10 Ml Vial IJ 03/14/21 23:59 DIRECTED PRN Sterile Water 0 ml 02/13/21 06:00 Water,Injection,Sterile 10 Ml Vial IJ 03/14/21 23:59 DIRECTED PRN PFSH Active Problems Active Problems: Problem Status Onset Code Osteoarthritis of right knee M17.11 Osteoarthritis of left knee M17.12 CAD (coronary artery disease) I25.10 Uterine prolapse without vaginal wall prolapse 02/22/15 N81.4 UPJ (ureteropelvic junction) obstruction 05/20/17 N13.5 Spinal stenosis 02/18/13 M48.00 Rheumatoid arthritis M06.9 Postmenopausal atrophic vaginitis 02/22/15 N95.2 Osteoarthritis M19.90 Myocardial infarction I21.9 Menopausal syndrome N95.1 Impaired fasting glucose R73.01 Hypothyroidism 12/08/12 E03.9 Hyperlipidemia E78.5 Essential hypertension 02/11/13 I10 Depressive disorder F32.9 Allergic rhinitis J30.9 Age-related nuclear cataract of both eyes H25.13 Abnormal mammogram 04/10/05 R92.8 Medical History Medical History Abnormal uterine bleeding Actinic keratoses Adjustment disorder with depressed mood Anemia Congenital stricture of ureteropelvic junction Depression Diabetes mellitus DJD (degenerative joint disease) of cervical spine Glucose intolerance Hyperlipidemia Hypertension Hypothyroidism Lower back pain Pelvic floor instability Seborrheic keratoses Spinal stenosis Uterine prolapse without vaginal wall prolapse Surgical History Surgical History Angioplasty (~1999) Arthroplasty of knee History of coronary angioplasty Stent placement 1999; RCA Tobacco Smoking/Tobacco Use Status: Never Alcohol Alcohol Intake: current Alcohol intake frequency: holidays/special occasions only Alcohol type: wine Substance Use Substance use: Never Substance use type: does not use Vital Signs and Lab Results Vital Signs Most Recent Vital Signs in EMR: Most Recent Vital Signs Temp Pulse Resp BP Pulse Ox 36.5 C 93 H 16 118/68 100 02/13/21 06:22 02/13/21 06:22 02/13/21 06:22 02/13/21 06:22 02/13/21 06:22 Lab Results Blood Type / Crossmatch: No Data to Display Complete Blood Count: White Blood Count 6.74 10^3/uL (4.4-10.8) 02/12/21 09:32 02/12/21 Red Blood Count 4.31 10^6/uL (3.93-5.22) 02/12/21 09:32 02/12/21 Hemoglobin 13.2 g/dL (11.2-15.7) 02/12/21 09:32 02/12/21 Hematocrit 40.3 % (36.0-46.0) 02/12/21 09:32 02/12/21 Platelet Count 257 10^3/uL (130-400) 02/12/21 09:32 02/12/21 Complete Metabolic Panel: Sodium Level 140 mmol/L (136-145) 02/12/21 09:32 02/12/21 Potassium Level 3.9 mmol/L (3.5-5.1) 02/12/21 09:32 02/12/21 Chloride Level 106 mmol/L (98-107) 02/12/21 09:32 02/12/21 Carbon Dioxide Level 31.2 mmol/L (21.0-32.0) 02/12/21 09:32 02/12/21 Blood Urea Nitrogen 18 mg/dL (7-18) 02/12/21 09:32 02/12/21 Creatinine 0.8 mg/dL (0.55-1.02) 02/12/21 09:32 02/12/21 Estimated GFR/1.73 m2 >= 60.00 (mL/min/1.73m2) 02/12/21 09:32 02/12/21 Calcium Level 9.0 mg/dL (8.5-10.1) 02/12/21 09:32 02/12/21 Glucose Level 101 mg/dL (74-106) 02/12/21 09:32 02/12/21 Liver Function Panel: No Data to Display Coagulation Panel: No Data to Display Cardiac Panel: No Data to Display Arterial Blood Gas: No Data to Display Venous Blood Gas: No Data to Display Pancreas Panel: No Data to Display Thyroid Panel: No Data to Display Infectious Disease: Coronavirus (COVID-19)(PCR) Negative (Negative) 02/12/21 10:14 02/12/21 Coronavirus 2019 Source Nasal/Nares 02/12/21 10:14 02/12/21 Blood Cultures: No Data to Display Toxicology Panel: No Data to Display Anesthesia Assessment and Plan Anesthesia History Personal History: No History of Anesthesia Complications Family History: No Family History of Anesthesia Complications Exercise Tolerance Exercise Tolerance: Metabolic Equivalents>4 Pertinent Negatives Pertinent Negatives: No Symptoms of GERD, No Major Cardiovascular Symptoms or Complaints, No Major Pulmonary Symptoms or Complaints and No History of CVA/TIA Cardiac & Pulmonary Exam Cardiac Exam: Normal S1/S2 Heart Sounds Pulmonary Exam: Clear Bilateral Breath Sounds Airway Exam Known Difficult Airway: No Mallampati Class: 2 Mouth Opening: Normal (> 3cm) Thyromental Distance: Greater than 3 cm Neck Range of Motion: Full ROM Neck Circumference: Normal Teeth Condition: Normal Dentition ASA Classification ASA Score: ASA 3 Emergency Case?: No NPO Status NPO Status: NPO Clears >2 hours, Solids >8 hours Anesthesia Plan Resuscitation Status: Full Code Anesthesia Technique: Spinal Anesthesia Airway Planned: Natural Airway Pain Management: Surgeon and patient request nerve block Monitors Used: Standard Monitors
[2021-02-13] MEDS: Lactated Ringers 1,000 ML 80 ML IV (06:53)
[2021-02-13] MEDS: Celecoxib 200 MG CAP 400 MG PO (06:54)
[2021-02-13] MEDS: Acetaminophen 500 MG TAB 1000 MG PO (06:54)
[2021-02-13] MEDS: Gabapentin 300 MG CAP PO (06:54)
--- NOTE | 2021-02-13 07:00 | ANES.PREOP_ITS ---
General Info Height: 5 ft 3 in Weight: 68.2 kg Body Mass Index (BMI): 26.6 Surgical Procedure: Operation Date: 02/13/21 07:55 Proposed Procedures Side Surgeon p Knee Total Arthroplasty Left Antwan Carlos MD Meds Allergies and Home Medications Allergies Allergy/AdvReac Type Severity Reaction Status Date / Time prednisone AdvReac Intermediate MANIC Verified 02/09/21 09:30 lisinopril AdvReac COUGH Verified 02/09/21 09:30 ramipril [From Altace] AdvReac Dry cough Verified 02/09/21 09:30 environmental Allergy Intermediate headache, Uncoded 02/09/21 09:30 itchy eyes, congestion Home Medication Medication Instructions Recorded Flonase 1 spray NS DAILY PRN #3 spray 10/20/12 Zyrtec 10 mg PO DAILY #90 10/20/12 aspirin [Ecotrin Low Strength] 1 tab PO DAILY #190 tab-cap 10/20/12 multivitamin [One Daily] 1 ea PO DAILY 10/20/12 nitroglycerin [Nitrostat] 0.4 mg SUBLINGUAL PRN #25 10/20/12 levothyroxine [Synthroid] 100 mcg PO DAILY #90 tab-cap 08/16/15 cholecalciferol (vitamin D3) 1,000 unit PO DAILY #3 09/11/16 ascorbic acid (vitamin C) 500 mg 1,000 mg PO DAILY 04/09/18 tablet,extended release estradiol 1 gm VG .2X/WEEK gm 12/24/18 ezetimibe 10 mg tablet 10 mg PO DAILY 90 Days #90 tab 12/24/18 atorvastatin 80 mg PO HS 02/14/20 amlodipine 2.5 mg tablet 2.5 mg PO BID #60 tab 07/21/20 coenzyme Q10 10 mg capsule 10 mg PO DAILY cap 08/15/20 losartan 50 mg tablet 50 mg PO BID #90 tab 08/15/20 metformin 500 mg tablet 500 mg PO DAILY tab-cap 08/15/20 diltiazem HCl 120 mg 120 mg PO DAILY #90 cap 11/10/20 capsule,extended release 24 hr Current Visit Medications: Current Medications Generic Name Dose Route Start Last Admin Trade Name Freq PRN Reason Stop Dose Admin Acetaminophen 1,000 mg 02/13/21 06:00 02/13/21 06:54 Acetaminophen 500 Mg Tab PO 02/13/21 16:00 1,000 mg PREOP ART Administration Celecoxib 400 mg 02/13/21 06:00 02/13/21 06:54 Celecoxib 200 Mg Cap PO 02/13/21 16:00 400 mg PREOP ART Administration Gabapentin 300 mg 02/13/21 06:00 02/13/21 06:54 Gabapentin 300 Mg Cap PO 02/13/21 16:00 300 mg PREOP ART Administration Tranexamic Acid 1,000 mg/ 60 mls @ 360 mls/hr 02/13/21 06:00 Sodium Chloride IVPB 02/13/21 16:00 PREOP ART Tranexamic Acid 1,000 mg/ 60 mls @ 360 mls/hr 02/13/21 06:00 Sodium Chloride IVPB 02/13/21 16:00 DIRECTED ART Ringer's Solution 1,000 mls @ 80 mls/hr 02/13/21 06:00 02/13/21 06:53 IV 03/14/21 23:59 80 mls/hr INFUSION ART Administration Cefazolin Sodium/Dextrose 2 gm in 50 mls @ 100 mls/hr 02/13/21 06:00 Ancef Duplex IVPB 02/13/21 23:59 PREOP ART IV Miscellaneous Supplies 1 each 02/13/21 06:00 Iv Access IV 03/14/21 23:59 DIRECTED ART Sodium Chloride 0 ml 02/13/21 06:00 Normal Saline Flush 10 Ml Syr IV 03/14/21 23:59 PRN PRN Sodium Chloride 0 ml 02/13/21 06:00 Normal Saline 10 Ml Vial IJ 03/14/21 23:59 DIRECTED PRN Sterile Water 0 ml 02/13/21 06:00 Water,Injection,Sterile 10 Ml Vial IJ 03/14/21 23:59 DIRECTED PRN PFSH Active Problems Active Problems: Problem Status Onset Code Osteoarthritis of right knee M17.11 Osteoarthritis of left knee M17.12 CAD (coronary artery disease) I25.10 Uterine prolapse without vaginal wall prolapse 02/22/15 N81.4 UPJ (ureteropelvic junction) obstruction 05/20/17 N13.5 Spinal stenosis 02/18/13 M48.00 Rheumatoid arthritis M06.9 Postmenopausal atrophic vaginitis 02/22/15 N95.2 Osteoarthritis M19.90 Myocardial infarction I21.9 Menopausal syndrome N95.1 Impaired fasting glucose R73.01 Hypothyroidism 12/08/12 E03.9 Hyperlipidemia E78.5 Essential hypertension 02/11/13 I10 Depressive disorder F32.9 Allergic rhinitis J30.9 Age-related nuclear cataract of both eyes H25.13 Abnormal mammogram 04/10/05 R92.8 Medical History Medical History Abnormal uterine bleeding Actinic keratoses Adjustment disorder with depressed mood Anemia Congenital stricture of ureteropelvic junction Depression Diabetes mellitus DJD (degenerative joint disease) of cervical spine Glucose intolerance Hyperlipidemia Hypertension Hypothyroidism Lower back pain Pelvic floor instability Seborrheic keratoses Spinal stenosis Uterine prolapse without vaginal wall prolapse Surgical History Surgical History Angioplasty (~1999) Arthroplasty of knee History of coronary angioplasty Stent placement 1999; RCA Tobacco Smoking/Tobacco Use Status: Never Alcohol Alcohol Intake: current Alcohol intake frequency: holidays/special occasions only Alcohol type: wine Substance Use Substance use: Never Substance use type: does not use Vital Signs and Lab Results Vital Signs Most Recent Vital Signs in EMR: Most Recent Vital Signs Temp Pulse Resp BP Pulse Ox 36.5 C 93 H 16 118/68 100 02/13/21 06:22 02/13/21 06:22 02/13/21 06:22 02/13/21 06:22 02/13/21 06:22 Lab Results Blood Type / Crossmatch: No Data to Display Complete Blood Count: White Blood Count 6.74 10^3/uL (4.4-10.8) 02/12/21 09:32 02/12/21 Red Blood Count 4.31 10^6/uL (3.93-5.22) 02/12/21 09:32 02/12/21 Hemoglobin 13.2 g/dL (11.2-15.7) 02/12/21 09:32 02/12/21 Hematocrit 40.3 % (36.0-46.0) 02/12/21 09:32 02/12/21 Platelet Count 257 10^3/uL (130-400) 02/12/21 09:32 02/12/21 Complete Metabolic Panel: Sodium Level 140 mmol/L (136-145) 02/12/21 09:32 02/12/21 Potassium Level 3.9 mmol/L (3.5-5.1) 02/12/21 09:32 02/12/21 Chloride Level 106 mmol/L (98-107) 02/12/21 09:32 02/12/21 Carbon Dioxide Level 31.2 mmol/L (21.0-32.0) 02/12/21 09:32 02/12/21 Blood Urea Nitrogen 18 mg/dL (7-18) 02/12/21 09:32 02/12/21 Creatinine 0.8 mg/dL (0.55-1.02) 02/12/21 09:32 02/12/21 Estimated GFR/1.73 m2 >= 60.00 (mL/min/1.73m2) 02/12/21 09:32 02/12/21 Calcium Level 9.0 mg/dL (8.5-10.1) 02/12/21 09:32 02/12/21 Glucose Level 101 mg/dL (74-106) 02/12/21 09:32 02/12/21 Liver Function Panel: No Data to Display Coagulation Panel: No Data to Display Cardiac Panel: No Data to Display Arterial Blood Gas: No Data to Display Venous Blood Gas: No Data to Display Pancreas Panel: No Data to Display Thyroid Panel: No Data to Display Infectious Disease: Coronavirus (COVID-19)(PCR) Negative (Negative) 02/12/21 10:14 02/12/21 Coronavirus 2019 Source Nasal/Nares 02/12/21 10:14 02/12/21 Blood Cultures: No Data to Display Toxicology Panel: No Data to Display Imaging and Studies Imaging and Studies EKG Summary: 14 Day [employer] Referring Provider:: Mini Hernandez Indications:: PVCs Note: This is a 14-day Holter monitor, ordered for symptoms or indication of PVCs. Rhythm throughout with sinus. Average heart rate was 92, minimum 56, maximum 142 there were rare atrial Premature beats. There were a total of 13 episodes of self-limited atrial runs, the longest of which was 9 beats in duration There were frequent premature ventricular contractions. They comprised 8.72% of total beats. Periods of bigeminy and trigeminy were noted. There were several very brief runs of nonsustained ventricular tachycardia, less than 5 beats in length. There was one 12 beat run of nonsustained ventricular tachycardia which was asymptomatic There was no atrial fibrillation, no high-grade AV block, no pauses greater than 3 seconds Most patient symptoms corresponded to sinus rhythm and sinus tachycardia, occasionally to PVCs Stress Test Summary: 08/10/20 Stress ECG Conclusion 1. The patient exercised for 9 minutes (10 METS). The patient no symptoms suggestive of ischemia. 2. The patient's blood pressure and heart rate augmented appropriately. 3. There is no evidence of ischemia on the ECG portion exam. Patient did have frequent PVCs. Stress Test Summary STAGETime (mins)Speed (mph)Grade (%)[id number]/884.6 [id number]/80mild/moderate SOB, SPO2 98%7 1 min [id number] resolved 3 min [id number] 6 min [id number] MPI Conclusion The ejection fraction was 47% with stress with hypokinesis of the basal and mid inferior wall. There is a small predominantly fixed perfusion defect of the basal inferior wall as well as the apex. This represents an abnormal stress test. Other Study Summary:: 11/10/20 Assessment & Plan (1) CAD (coronary artery disease): 1. Coronary artery disease. Status post RCA stenting back in 1999. She has had increased dyspnea on exertion and a recent MPI shows inferior defect that is predominantly fixed. Echocardiogram shows preserved ejection fraction with no significant wall motion abnormalities. We again discussed possible left heart catheterization but given the fixed nature of her defect and lack of significant test pain we will continue to hold off and instead treat the PVCs as below. ?Continue aspirin and statin. Lipids are well controlled. 2. Hypertension: Currently better controlled. ?Continue amlodipine to 2.5 mg twice a day. ?Continue losartan 50 mg twice daily 3. PVCs: Her last 14-day monitor showed a 9% burden. She thinks has had PVCs for quite some time but she does not know to what degree. She does not think they were ever treated directly though it sounds like she was on a beta-lewis years ago that was stopped for unknown reasons. I think there is a fair chance that her PVCs could be causing some of her symptoms and it is worth an attempt to treat them. The good news is her echocardiogram is normal so does not appear that these PVCs are having effect on her heart. ?We will start low-dose diltiazem. We discussed that either this or beta- lewis were just as effective but because she has been on a beta-lewis in the past and it was stopped for unknown reasons (possible side effects) we will instead do a calcium channel lewis. She will call us if she has any significant symptoms. ?Should she have any difficulty with blood pressure on the diltiazem, would consider dropping the amlodipine but she seems to have room for both. Return to clinic in 3 months or sooner as needed Plan Detail New: diltiazem [id number] mg PO DAILY 90 caps 3RF Total time on date of encounter, ([id number] and non [id number]) (minutes): 25 Time was spent: reviewing prior notes and diagnostics, providing direct patient care, ordering diagnostics and/or referrals, documenting today's visit, updating the EMR and coordinating care Anesthesia Assessment and Plan Anesthesia History Personal History: No History of Anesthesia Complications Family History: No Family History of Anesthesia Complications Airway Exam Known Difficult Airway: No Mallampati Class: 2 Mouth Opening: Normal (> 3cm) Thyromental Distance: Greater than 3 cm Neck Range of Motion: Full ROM Neck Circumference: Normal
--- NOTE | 2021-02-13 07:30 | DSE_ITS ---
Documented by User: [email or web address] [email or web address] 02/13/21 07:34 DS: Diagnosis Discharge Diagnosis (1) Osteoarthritis of left knee: Status: Acute Discharge Plan Disposition Patient Disposition: HOME Condition: Good Discharge Details Reason For Visit: Left knee DJD Attending Provider: Antwan Carlos Primary Care Provider: Mini Hernandez Home Meds and New Rx's Prescriptions: New celecoxib [Celebrex] 200 mg capsule 200 mg PO BID Qty: 30 RF: 0 aspirin 81 mg tablet,delayed release (DR/EC) 81 mg PO BID 30 Days Qty: 60 RF: 0 acetaminophen 500 mg tablet 500 mg PO Q6H PRN (Reason: pain) Qty: 60 RF: 2 pantoprazole 40 mg tablet,delayed release (DR/EC) 40 mg PO DAILY 30 Days Qty: 30 RF: 0 docusate sodium [Colace] 100 mg capsule 100 mg PO BID Qty: 30 RF: 0 gabapentin 300 mg capsule 300 mg PO QHS Qty: 14 RF: 0 oxycodone 5 mg tablet 5 mg PO Q4H PRN (Reason: severe post-operative pain) Qty: 18 RF: 0 ondansetron 4 mg tablet,disintegrating 4 mg PO Q8H PRNQty: 12 RF: 0 Continued estradiol 0.01 % (0.1 mg/gram) cream 1 gm VG .2X/WEEK RF: 0 ezetimibe 10 mg tablet 10 mg PO DAILY 90 Days Qty: 90 RF: 2 ascorbic acid (vitamin C) 500 mg tablet extended release 1,000 mg PO DAILY RF: 0 coenzyme Q10 [Co Q-10] 10 mg capsule 10 mg PO DAILY RF: 0 diltiazem HCl 120 mg capsule,extended release 24hr 120 mg PO DAILY Qty: 90 RF: 3 multivitamin [One Daily] 1 EACH tablet 1 ea PO DAILY RF: 0 nitroglycerin [Nitrostat] 0.4 MG tablet, sublingual 0.4 mg Sublingual PRN Qty: 25 RF: 4 Zyrtec 10 MG capsule 10 mg PO DAILY Qty: 90 RF: 4 FLONASE 16 GM SPRAY.SUSP 1 spray NS DAILY PRNQty: 3 RF: 4 levothyroxine [Synthroid] 100 MCG tablet 100 mcg PO DAILY Qty: 90 RF: 4 cholecalciferol (vitamin D3) 1,000 UNIT tablet 1,000 unit PO DAILY Qty: 3 RF: 0 amlodipine 2.5 mg tablet 2.5 mg PO BID Qty: 60 RF: 12 losartan [Cozaar] 50 mg tablet 50 mg PO BID Qty: 90 RF: 4 metformin 500 mg tablet 500 mg PO DAILY RF: 0 atorvastatin 80 mg tablet 80 mg PO HS RF: 0 Discontinued aspirin [Ecotrin Low Strength] 81 MG tablet,delayed release (DR/EC) 1 tab PO DAILY Qty: 190 RF: 4 Discharge Instructions Additional Instructions: Total Knee Discharge Instructions Activity: The most important activity is to walk. You should try to take short walks a few times a day. It is important that when resting you work on keeping the knee straight. Avoid putting a pillow behind the knee as this will encourage flexion. Work on range of motion exercises as provided by Physical Therapy. If you have the [facility] bike coming, this will be your primary tool for exercise after the knee replacement. You should use it and follow the directions for the knee. Utilize the other exercises sparingly based on your symptoms. - Start outpatient physical therapy within 2 weeks. - You should wear the SANG hose on both legs for 2 weeks. You may remove these at night. You may also use any compression sock in place of the SANG hose. - Utilize [employer] to review exercises, see videos on exercises and obtain basic information pertaining to your surgery and your recovery. Dressing: Remove the Song wrap by 2 days after your surgery and put on the SANG stocking given to you from the hospital. Keep the surgical dressing (underneath the SONG wrap) in place for at least one week. After the first week it may be removed and replaced with light gauze and tape or nothing. The wound and dressing may get wet after 3 days but avoid soaking the dressing or otherwise it will need to be changed. Many people prefer covering the dressing with cling wrap (saran wrap) to minimize it from getting soaked. If it gets wet, just pat dry. If it starts to peel off then it will need to be changed. Medications: - You should take Tylenol and anti-inflammatory Celebrex as your primary pain control medications. If the Celebrex is too expensive or not covered, please call the office for another alternative (Advil/Ibuprofen or Naproxen/Aleve) - You have been prescribed a stronger pain medication Oxycodone for breakthrough pain, take as needed as prescribed. - You have also been prescribed a stomach acid reduction agent Pantoprozole to help reduce stomach acid and reflux. - You have been prescribed Gabapentin to take at night for restlessness and nerve pain. - You will be taking Aspirin 81mg twice a day for DVT prevention unless instructed otherwise. - If you have constipation you should take Colace (which has been prescribed) or Miralax (which you may purchase [id number]). It takes most people 3-4 days to have a bowel movement. Follow-up: 2 weeks If you have any acute concerns or questions, please do not hesitate to contact the office at [phone]. You may contact Dr. Carlos with any questions after hours through the hospital at [phone] or on his cell phone at [phone]. Stand Alone Forms: Anesthesia Discharge Inst., Anes.Nerve Block Instructions Referrals: Antwan Carlos MD [ [facility] ST[facility]FF [facility]YSICIAN] - Equipment/Supplies: Walker Activity:: Elevate Remove Dressings/Wound Care:: Do Not Remove Shower/Bathe:: Cover Diet:: As Tolerated Discharge Orders Discharge Orders: Discharge Order (Routine); Ordered 02/13/21 Ordered By: Antwan Carlos DS: Data Vitals/I&O Vitals and I&O: Vital Signs Temperature 36.5 C 02/13/21 06:22 Pulse 93 H 02/13/21 06:22 Pulse Rhythm Regular 02/13/21 06:22 Respiratory Rate 16 02/13/21 06:22 Respiratory Depth Normal 02/13/21 06:22 Blood Pressure 118/68 02/13/21 06:22 Pulse Oximetry 100 02/13/21 06:22 Oxygen Delivery Method Room Air 02/13/21 06:22 Oxygen Flow Rate 0 02/13/21 06:22 Pain Level 0 02/13/21 06:22 Intake & Output 02/12/21 02/12/21 02/13/21 11:59 23:59 11:59 Weight 68.2 kg [facility] Medical History Abnormal uterine bleeding Actinic keratoses Adjustment disorder with depressed mood Anemia Congenital stricture of ureteropelvic junction Depression Diabetes mellitus DJD (degenerative joint disease) of cervical spine Glucose intolerance Hyperlipidemia Hypertension Hypothyroidism Lower back pain Pelvic floor instability Seborrheic keratoses Spinal stenosis Uterine prolapse without vaginal wall prolapse Surgical History Angioplasty (~1999) Arthroplasty of knee History of coronary angioplasty Stent placement 1999; RCA Family History Mother Essential hypertension Depression Heart disease Hyperlipidemia Father Essential hypertension Personal history of malignant neoplasm BREAST Heart disease Hyperlipidemia Stroke TIA Sister Alcohol abuse Essential hypertension Hyperlipidemia Stroke Sister Alcohol abuse Essential hypertension Personal history of malignant neoplasm BREAST/BASAL CELL CARCINOMA Hyperlipidemia Sister Essential hypertension Depression Hyperlipidemia Brother ADHD (attention deficit hyperactivity disorder) Essential hypertension Bipolar disorder Hyperlipidemia Brother Essential hypertension Hyperlipidemia Brother Essential hypertension Personal history of malignant neoplasm BASAL CELL Depression Grandfather Heart disease Grandfather Essential hypertension Heart disease Grandmother Personal history of malignant neoplasm BREAST/CERVICAL Grandmother Essential hypertension Hyperlipidemia Stroke Social History Smoking/Tobacco Use Status: Never Smoking risk assessment performed?: Yes Alcohol Intake: current Alcohol Intake frequency: holidays/special occasions only Alcohol type: wine Drug use: Never Substance use type: does not use Number of Children: 2 What type of physical activity do you participate in: walking, yoga and additional Details: floor/PT exercises daily Seatbelt use: always Do you feel safe at home: Yes Do you feel safe in your relationship?: Yes Documented by User: Antwan Carlos MD 02/13/21 14:02 Date of service: 02/13/21 Time of Service: 14:01 Discharge Plan Disposition Patient Disposition: HOME Condition: Good Discharge Details Reason For Visit: Left knee DJD Attending Provider: Antwan Carlos Primary Care Provider: Mini Hernandez Home Meds and New Rx's Prescriptions: New celecoxib [Celebrex] 200 mg capsule 200 mg PO BID Qty: 30 RF: 0 aspirin 81 mg tablet,delayed release (DR/EC) 81 mg PO BID 30 Days Qty: 60 RF: 0 acetaminophen 500 mg tablet 500 mg PO Q6H PRN (Reason: pain) Qty: 60 RF: 2 pantoprazole 40 mg tablet,delayed release (DR/EC) 40 mg PO DAILY 30 Days Qty: 30 RF: 0 docusate sodium [Colace] 100 mg capsule 100 mg PO BID Qty: 30 RF: 0 gabapentin 300 mg capsule 300 mg PO QHS Qty: 14 RF: 0 oxycodone 5 mg tablet 5 mg PO Q4H PRN (Reason: severe post-operative pain) Qty: 18 RF: 0 ondansetron 4 mg tablet,disintegrating 4 mg PO Q8H PRNQty: 12 RF: 0 Continued estradiol 0.01 % (0.1 mg/gram) cream 1 gm VG .2X/WEEK RF: 0 ezetimibe 10 mg tablet 10 mg PO DAILY 90 Days Qty: 90 RF: 2 ascorbic acid (vitamin C) 500 mg tablet extended release 1,000 mg PO DAILY RF: 0 coenzyme Q10 [Co Q-10] 10 mg capsule 10 mg PO DAILY RF: 0 diltiazem HCl 120 mg capsule,extended release 24hr 120 mg PO DAILY Qty: 90 RF: 3 multivitamin [One Daily] 1 EACH tablet 1 ea PO DAILY RF: 0 nitroglycerin [Nitrostat] 0.4 MG tablet, sublingual 0.4 mg Sublingual PRN Qty: 25 RF: 4 Zyrtec 10 MG capsule 10 mg PO DAILY Qty: 90 RF: 4 FLONASE 16 GM SPRAY.SUSP 1 spray NS DAILY PRNQty: 3 RF: 4 levothyroxine [Synthroid] 100 MCG tablet 100 mcg PO DAILY Qty: 90 RF: 4 cholecalciferol (vitamin D3) 1,000 UNIT tablet 1,000 unit PO DAILY Qty: 3 RF: 0 amlodipine 2.5 mg tablet 2.5 mg PO BID Qty: 60 RF: 12 losartan [Cozaar] 50 mg tablet 50 mg PO BID Qty: 90 RF: 4 metformin 500 mg tablet 500 mg PO DAILY RF: 0 atorvastatin 80 mg tablet 80 mg PO HS RF: 0 Discontinued aspirin [Ecotrin Low Strength] 81 MG tablet,delayed release (DR/EC) 1 tab PO DAILY Qty: 190 RF: 4 Discharge Instructions Additional Instructions: Total Knee Discharge Instructions Activity: The most important activity is to walk. You should try to take short walks a few times a day. It is important that when resting you work on keeping the knee straight. Avoid putting a pillow behind the knee as this will encourage flexion. Work on range of motion exercises as provided by Physical Therapy. If you have the [facility] bike coming, this will be your primary tool for exercise after the knee replacement. You should use it and follow the directions for the knee. Utilize the other exercises sparingly based on your symptoms. - Start outpatient physical therapy within 2 weeks. - You should wear the SANG hose on both legs for 2 weeks. You may remove these at night. You may also use any compression sock in place of the SANG hose. - Utilize [employer] to review exercises, see videos on exercises and obtain basic information pertaining to your surgery and your recovery. Dressing: Remove the Song wrap by 2 days after your surgery and put on the SANG stocking given to you from the hospital. Keep the surgical dressing (underneath the SONG wrap) in place for at least one week. After the first week it may be removed and replaced with light gauze and tape or nothing. The wound and dressing may get wet after 3 days but avoid soaking the dressing or otherwise it will need to be changed. Many people prefer covering the dressing with cling wrap (saran wrap) to minimize it from getting soaked. If it gets wet, just pat dry. If it starts to peel off then it will need to be changed. Medications: - You should take Tylenol and anti-inflammatory Celebrex as your primary pain control medications. If the Celebrex is too expensive or not covered, please call the office for another alternative (Advil/Ibuprofen or Naproxen/Aleve) - You have been prescribed a stronger pain medication Oxycodone for breakthrough pain, take as needed as prescribed. - You have also been prescribed a stomach acid reduction agent Pantoprozole to help reduce stomach acid and reflux. - You have been prescribed Gabapentin to take at night for restlessness and nerve pain. - You will be taking Aspirin 81mg twice a day for DVT prevention unless instructed otherwise. - If you have constipation you should take Colace (which has been prescribed) or Miralax (which you may purchase [id number]). It takes most people 3-4 days to have a bowel movement. Follow-up: 2 weeks If you have any acute concerns or questions, please do not hesitate to contact the office at [phone]. You may contact Dr. Carlos with any questions after hours through the hospital at [phone] or on his cell phone at [phone]. Stand Alone Forms: Anesthesia Discharge Inst., Anes.Nerve Block Instructions Referrals: Antwan Carlos MD [ [facility] ST[facility]FF PHYSICIAN] - Equipment/Supplies: Walker Activity:: Elevate Remove Dressings/Wound Care:: Do Not Remove Shower/Bathe:: Cover Diet:: As Tolerated Discharge Orders Discharge Orders: Discharge Order (Routine); Ordered 02/13/21 Ordered By: Antwan Carlos DS: Summary Time Spent with Patient providing and/or coordinating discharge services: Less than 30 minutes Status at Discharge Functional status at discharge: uses cane/walker Overall status at discharge: patient is progressing back to baseline Mental Status: mental status grossly normal Speech and Movement: speech and movement normal Mood: congruent mood Affect: normal affect Exam Psych Mental Status: mental status grossly normal Speech and Movement: speech and movement normal Mood: congruent mood Affect: normal affect [facility] Medical History Abnormal uterine bleeding Actinic keratoses Adjustment disorder with depressed mood Anemia Congenital stricture of ureteropelvic junction Depression Diabetes mellitus DJD (degenerative joint disease) of cervical spine Glucose intolerance Hyperlipidemia Hypertension Hypothyroidism Lower back pain Pelvic floor instability Seborrheic keratoses Spinal stenosis Uterine prolapse without vaginal wall prolapse Surgical History Angioplasty (~1999) Arthroplasty of knee History of coronary angioplasty Stent placement 1999; RCA Family History Mother Essential hypertension Depression Heart disease Hyperlipidemia Father Essential hypertension Personal history of malignant neoplasm BREAST Heart disease Hyperlipidemia Stroke TIA Sister Alcohol abuse Essential hypertension Hyperlipidemia Stroke Sister Alcohol abuse Essential hypertension Personal history of malignant neoplasm BREAST/BASAL CELL CARCINOMA Hyperlipidemia Sister Essential hypertension Depression Hyperlipidemia Brother ADHD (attention deficit hyperactivity disorder) Essential hypertension Bipolar disorder Hyperlipidemia Brother Essential hypertension Hyperlipidemia Brother Essential hypertension Personal history of malignant neoplasm BASAL CELL Depression Grandfather Heart disease Grandfather Essential hypertension Heart disease Grandmother Personal history of malignant neoplasm BREAST/CERVICAL Grandmother Essential hypertension Hyperlipidemia Stroke Social History Smoking/Tobacco Use Status: Never Smoking risk assessment performed?: Yes Alcohol Intake: current Alcohol Intake frequency: holidays/special occasions only Alcohol type: wine Drug use: Never Substance use type: does not use Number of Children: 2 What type of physical activity do you participate in: walking, yoga and additional Details: floor/PT exercises daily Seatbelt use: always Do you feel safe at home: Yes Do you feel safe in your relationship?: Yes
[2021-02-13] MEDS: ceFAZolin 2 GM/50 ML BAG IVPB (07:45)
[2021-02-13] MEDS: Ketorolac 30 MG/ML VIAL (08:35)
[2021-02-13] MEDS: Normal Saline 20 ML VIAL ×2 (08:35→10:01)
[2021-02-13] MEDS: Bupivacaine 0.25% Pres-Free 30 ML VIAL (08:35)
--- NOTE | 2021-02-13 09:15 | ROE_ITS ---
Date of service: 02/13/21 Time of Service: 09:15 Operative Note Operative Note DATE OF PROCEDURE: 02/13/21 PRE-OP DIAGNOSIS: Left Knee Osteoarthritis POST-OP DIAGNOSIS: same PROCEDURE: Left Total Knee Replacement SURGEON: Antwan Carlos INVESTIGATIONS CHIEF: Ameena Myrick ANESTHESIA TYPE: Spinal Refer to Anesthesia Record ESTIMATED BLOOD LOSS: 100 PATHOLOGY: none sent TOURNIQUET TIME: 28 COMPLICATIONS: None Patient was transported to: PACU Patient's condition: stable Implants: 1. Depuy Attune Cruciate Retaining Femoral Component, Size 6 Narrow 2. Depuy Attune Rotating Platform Tibial Component, Size 4 3. Depuy Attune 6x6 CR,RP Poly 4. Depuy Attune Patellar Component, Size 35 Indications: I have seen Tonya in clinic for symptoms of knee arthritis, confirmed with radiographic findings. Tonya has exhausted nonoperative methods and was having significant limitations in daily function and desired better function and less pain. I discussed the technical details of a knee replacement. I explained the risks of the procedure to include, but not limited to, bleeding, infection, pain, stiffness, fracture, damage to nerves and vessels, damage to muscles and tendons, loosening, need for repeat procedure, blood clot and cardiopulmonary demise. Despite these risks, Tonya elected to proceed. Findings: There was significant signs of arthritis throughout the knee, mostly involving the patellofemoral and medial compartments. Procedure Description: Tonya was greeted in the preoperative holding area where the correct side was identified and marked. The consent was reviewed with the patient and signed. The history and physical was updated. All questions were answered. Preoperative mediacations were administered: Acetaminophen 1000mg, Celebrex 400mg, and Gabapentin 300mg. An adductor canal block was then administered by the anesthesia team in the PACU. Tonya was taken back to the operating room. A spinal anesthestic was then administered. The patient was placed into the supine position on the operating room table. A nonsterile tourniquet was placed high onto the leg but only used for cementing. Posts were placed for positioning during the procedure. All bony prominences were well padded. Prophylactic antibiotics in the form of Cefazolin were administered. 1g of Tranxemic Acid was given intravenously within 30 minutes of incision. The left leg was then prepped with Chloraprep and draped in a standard fashion with impervious stockinette and extremity drape. A second prep with Chloraprep was performed prior to placing Ioband. A timeout to confirm correct identity, side and site, procedure, allergies, anesthesia, and medical concerns was performed. With the knee in some flexion, a midline incision was made overlying the knee. Full thickness skin flaps were raised once the extensor mechanism was encountered. These were raised medially and laterally. Any bleeding was controlled with electrocautery. Once the extensor mechanism was fully exposed, a medial parapatellar arthrotomy was performed in a flexed position. All bleeding from the arthrotomy and the geniculate arteries was coagulated. A medial subperiosteal peel was performed with electrocautery to the midcoronal plane. The fat pad was removed while keeping the patellar tendon protected. The anterior distal femur synovium was removed for later visualization. The ACL and PCL were resected and the anterior horn of the lateral meniscus was transected. The knee was then flexed with the patella everted. Large osteophytes from the tibia were removed. Using a step drill, and based on preoperative templating, the femoral canal was entered. This was done with a step drill without any difficulty. The intramedullary distal femoral cut guide was inserted, set to a 6 degree valgus cut and 9mm cut thickness. The distal femoral cut guide was then held in position and pinned. With the soft tissues protected, the distal cut was performed. This was passed over a few times to ensure a planar cut. I then turned attention to the tibia. The extramedullary guide was placed onto the leg. The distal aspect was slid medial to adjust for position of center of ankle and stay in line with shaft of the tibia. Approximately 3-5 degrees of posterior slope was kept in the proximal cutting guide. The center of the guide was aligned with the PCL. The stylus was used to assess cut thickness. The medial side, most involved side, was set for a 4mm cut. This was then held in position and pinned into place with 2 additional pins and a cross pin for stability. The medial and lateral collateral ligaments were protected and the cut was performed. With this completed, it was assessed and noted to be of appropriate dimensions. The guide was removed. A spacer block was inserted and the knee was brought into extension. The 7mm spacer block provided full extension, without hyperextension and with stability of both the medial and lateral collateral ligaments was assessed. The pins from the femur and the tibia were then removed. The distal femur was then sized. The anterior stylus was placed onto the lateral ridge of the anterior femur. This indicated a size 6 narrow femur. The external rotation of the guide was adjusted to 3 degrees to match the epicondylar axis, perpendicular to Comanche?s line. The 4-in-1 cutting guide was the placed. The posterior medial femur cut was evaluated and appeared of good thickness. The spacer block was inserted underneath the cutting guide and stability was confirmed in 90 degrees of flexion. An howard wing was used to confirm appropriate position of the anterior cut to avoid notching. This cutting guide was ensured to be flush on the cut surface and then pinned into place with headed pins. While protecting the soft tissues, quad tendon, and collateral ligaments, the anterior and posterior cuts were performed with a saw. The central two pins were removed and the posterior and anterior chamfers were cut next. The notch-cutting guide was placed. This was pinned to lateralize the femoral component as much as possible while keeping it flush on the cut surface. This was then pinned into position. A reciprocating saw was used to make the small notch cut. A trial CR femoral component was then inserted, impacted down to the cut surfaces, and the lug holes were drilled. A provisional trial tibial component was placed and the knee was brought through range of motion. There was noted to be excellent extension and flexion. There was no significant instability. The patella was tracking without thumbs. The tibial cut surface was fully exposed. The medial and lateral menisci were removed. The tibia was then sized as a 4. The tibia had been previously marked during trialing to correspond to the center of the tibial component to help with rotation. The trial was aligned to this palak, approximately rotated to the medial 1/3rd of the tibial tubercle. The trial was pinned into place. The tibia was prepared with a reamer and a keel punch. The knee was then brought into extension and the patella was measured as 25mm. Using the patellar clamp and cut guide, this was resected to a flat surface with at least 13mm of thickness remaining. The size 35 patella fit the best. This was oriented and then clamped into position. The lugs were drilled. The trial components were removed. The final components, except for the polyethylene were opened on the back table. The periosteal and capsular tissues, especially posteriorly, around the knee were then systematically injected with a periarticular cocktail consisting of 50cc 0.25% Marcaine, 30mg Ketorolac, 20cc of Exparal and 50cc of injectable saline. The tourniquet was then inflated to 275mmHg. The knee was thoroughly irrigated with a pulse lavage and dried. On the back table, with the implants opened, the cement was mixed. 2 batches of medium viscosity cement were prepared with vacuum assistance. After the cement was ready it was placed on to the back side of the tibial component. A small amount was placed onto the posterior flange of the femur. Cement was manual pressurized and impregnated into the cut surface of the tibia. The tibial component was then inserted into the cut surface and impacted into position. Excess cement was removed and the component was reimpacted. Again, excess cement was removed and our attention was then turned to the femur. The femoral cut surface was once again dried and cement was manually impacted into the cut surface. The femoral component was lined with the lug holes and impacted. Excess cement was removed. It was ensured to be down against the cut surface. The trial polyethylene was then inserted and the leg was brought out into full extension for the duration of the cement curing process, approximately 18min. Cement was lastly manually impacted into the cut surface of the patella and the patellar button was clamped into position and held. During this process attention was turned to the gutters of the knee and for all interfaces for any excess cement. While the cement was hardening, the knee was irrigated with Irrisept chlorhexadine solution. It was allowed to sit in the knee for 3 minutes. After the cement had finally cured, approximately 18min, the clamp was removed from the patella and the knee was taken through range of motion. A size 7mm polyethylene component provided the best range of motion and stability with less than 2mm gapping with medial and lateral stress and full extension without significant hyperextension. The patella was tracking with a no-thumbs technique. The trial poly was removed and once again the knee was checked for any loose, excess, or errant cement. The poly component was then inserted into position after cleaning and drying the tibial tray. The capsule was then reapproximated with a No. 1 Vicryl at multiple locations. The capsule was finally closed with a No. 2 Stratafix, barbed suture. The tourniquet was then released and the arthrotomy appeared watertight without significant bleeding. The second dosing of 1g TXA was started. Deep tissues were then reapproximated with 0 Vicryl and 2-0 Vicryl. The skin was closed with a running 3-0 Monocryl in a subcuticular fashion. This was reinforced with skin glue. A Mepilex silver dressing was applied along with a [id number] ULISES wrap. A CryoCuff was applied. tonya was transferred to the hospital bed without difficulty an suffering no apparent complication. Tonya has a good prognosis. Physical therapy will start today and without restrictions, weight-bearing as tolerated. Aspirin 81mg BID will be used for DVT prophylaxis.
--- NOTE | 2021-02-13 09:39 | W.ANESNERVE ---
Nerve Block Single Injection Procedure Date and Time Date Performed: 02/13/21 Procedure Start: 07:31 Location Where Procedure Performed Procedure Location: PACU Reason Performed: Postoperative Analgesia Requesting Provider: Antwan Carlos Timeout Performed Timeout Performed: Yes Monitoring Used ECG, Blood Pressure and SpO2 Sterility Sterility: Hand Hygiene, Surgical Cap, Surgical Mask, Sterile Gloves and Chlorhexidine Sedation Given During Procedure Sedation Given (Indicate Dose Given): Versed IV Dose:: 1 mg Patient Mental Status Patient Mental Status: Sedate with meaningful communication Nerve Block 1st Nerve Block: Laterality: Left Block Type: Adductor Canal Needle / Catheter Used: 100mm SonoPlex II Local Anesthetic Bolus (Indicate Dose Given): Lidocaine used for local infiltration of skin, Injected in 3-5ml increments after negative blood aspiration and Bupivacaine 0.25% Dose:: 20 ml Additives (Indicate Dose Given): None Ultrasound: Sterile probe cover and gel used Ultrasound Image Saved?: Yes Nerve Stimulator: Not Used Paresthesia: None Procedure Tolerated: No Complications Procedure Outcome: Successful Performed By: Sumit Romero Supervised By: Madan Aldana
[2021-02-13] MEDS: HYDROmorphone 2 MG/ML VIAL IVP ×2 (10:00→10:13)
--- NOTE | 2021-02-13 11:17 | IN_ITS ---
Date of service: 02/13/21 Time of Service: 11:17 PT Notes Visit Reasons: Left knee DJD Physical Therapy Day Surgery Initial Evaluation Date: 02/13/2021 Referring Doctor: BRITNEY Harrington PT Orders: PT CONSULT: Status post Ortho surgery WBAT on Precautions: WBAT on left LE with AD. Patient Profile/Admitting Diagnosis: Tonya is a 70-year-old female with primary unilateral osteoarthritis of the left knee and is status post left total knee arthroplasty on postoperative day 0. PMHX: Medical History Abnormal uterine bleeding Actinic keratoses Adjustment disorder with depressed mood Anemia Congenital stricture of ureteropelvic junction Depression Diabetes mellitus DJD (degenerative joint disease) of cervical spine Glucose intolerance Hyperlipidemia Hypertension Hypothyroidism Lower back pain Pelvic floor instability Seborrheic keratoses Spinal stenosis Uterine prolapse without vaginal wall prolapse Surgical History Angioplasty (~1999) Arthroplasty of knee History of coronary angioplasty Stent placement 1999; RCA Social History/Home Situation: Lives with in a private home with 7 steps that lead onto a landing and another 7 steps to the entrance of the house with a rail on the left side going up. Independent of all aspects of ADLs without an assistive device although she reports that she has had 2-3 falls in the past 12 months due to her left knee giving way. Equipment Owned/DME: standard walker, bilateral axillary crutches Subjective: Agreeable to PT consult. Complained of being groggy. Reported increasing nausea that shortened mobility assessment. Objective: General Observation: Supine SDC stretcher. ULISES wraps to left LE. TEDS on the R leg. Mental Status: Alert and oriented x4 Pain: 1-2/10 in the L knee ROM: Right Lower Extremity: Hip flexion WFL. Hip abduction WFL. Knee flexion WFL. Ankle dorsiflexion WFL. Ankle plantarflexion WFL. Left Lower Extremity: Hip flexion WFL. Hip abduction WFL. Knee flexion about 0 degrees to 90 degrees. Knee extension -20 degrees ankle dorsiflexion WFL. Ankle plantarflexion WFL. Strength: Right Lower Extremity: Hip flexors 5/5. Hip abductors 5/5. Knee flexors 5/5. Knee extensors 5/5. Ankle dorsiflexors 5/5. Ankle plantarflexors 5/5. Left Lower Extremity:Hip flexors 5/5. Hip abductors 5/5. Knee flexors 3-/5. Knee extensors 3-/5. Ankle dorsiflexors 5/5. Ankle plantarflexors 5/5. Sensation: Intact as to pain and light pressure in bilateral lower extremities Bed Mobility/Transfers: Supine to sit supervision Sit to stand contact-guard assist Stand to sit standby assist Bed to chair standby assist Gait: Tolerated short distance ambulation from bedside to the bathroom using front wheeled walker with report of nausea. Able to tolerate static standing about 3 minutes washing hands by the sink and was able to walk from the bathroom to about 10 feet outside her door but was advised to turn around and walk back to her chair's patient due to report of worsening nausea. Nurse Sally made aware. Deferred stair training until after half an hour when patient feels better. Balance: Static Sitting: Normal Dynamic Sitting: Normal Static Standing: Fair Dynamic Standing: Fair Special Tests: Mobility Limitations Standardized Measure [facility]-PAC 6 clicks Basic Mobility Inpatient Short Form: Raw Score: 21 CMS Score: 29% deficit Informed Consent/Education: Patient instructed in purpose of PT consult. Packet containing TKA exercise protocol given to patient. Education and shanta tomás on initial set of exercises that can be done at home will be completed by AS400 ADMINISTRATOR with patient after lunch. Assessment: Worsening nausea limited mobility assessment. We will plan on a second session with AS400 ADMINISTRATOR Gretchen for more out-of-room ambulation, stairs training, and HEP instruction after lunch today. Patient presents with clinical signs and symptoms consistent with current/admitting diagnoses that have resulted to mobility limitations, gait instability, generalized weakness, and impairment of motor control as demonstrated by the following impairment level findings: 1. Decreased strength to left knee major muscle groups 2. Impaired standing balance 3. Limitation of joint range of motion in left knee Impairments are contributing to the following functional limitations: 1. Inability to safely ambulate without assistive device 2. Increase completion time for mobility ADL performance 3. Increased fall risk Patient is assessed as a 47321 moderate complexity based on the following: History: 70 [id number] with impairment level findings, functional limitations, and past medical history as indicated above Examination: Demonstrable impairment in strength, balance, and mobility level with underlying impairments and functional limitations as documented above Presentation: Evolving Decision Makin moderate complexity Goals: N/A. PT evaluation and 1-2 treatment sessions only for functional mobility training using recommended AD and for HEP instruction. Plan of Care/Treatment Plan: N/A. PT evaluation and 1-2 treatment session only for functional mobility train ing using recommended AD and for HEP instruction. DISCHARGE RECOMMENDATIONS: Home when medically cleared by orthopedic surgeon. Outpatient PT services in order to facilitate return to independent community ambulation without an assistive device. TREATMENT CODE/TIME: 30282 x 20 minutes, 69687 x 13 minutes beginning at 11:17 AM. Thank you for the opportunity to participate in the care of this patient. Mishel Pang PT, DPT, CLT [facility] [place], [place]
[2021-02-13] MEDS: oxyCODONE 5 MG TAB PO (11:21)
--- NOTE | 2021-02-13 12:01 | W.ANESPOSTOP ---
Postoperative Evaluation Date, Time and Location Date Performed: 02/13/21 Time Performed: 12:01 Patient Location: Day Surgery Unit Vital Signs Most Recent Imported Vital Signs: Most Recent Vital Signs Temp Pulse Resp BP Pulse Ox 36.4 C L 69 16 111/74 98 02/13/21 11:09 02/13/21 11:09 02/13/21 11:09 02/13/21 11:09 02/13/21 11:09 Pain Score Most Recent Pain Score: Most Recent Pain Score Pain Level 1 02/13/21 11:09 Assessment Mental Status: Awake (Alert & Oriented to Patient Baseline) Airway and Respiratory Function: Patent airway with normal (patient baseline) respiratory exam Cardiovascular Function: Hemodynamically Stable Hydration Status: Adequately Hydrated Nausea & Vomiting: No Nausea or Vomiting Pain: Pain is tolerable per patient Peripheral Nerve Block: Regional nerve block not resolved at time of post operative discharge
[2021-02-13] MEDS: Ondansetron O.D.T. 4 MG TABEF PO (13:21)
--- NOTE | 2021-02-13 15:22 | PT.INTREAT ---
Date of service: 02/13/21 Time of Service: 12:48 PT Notes Visit Reasons: Left knee DJD Inpatient Physical Therapy Treatment Note [facility] Date: 02/13/2021 PRECAUTIONS: WBAT L SUBJECTIVE: Tonya is pleasant, stating that she is feeling much better and less nauseated than earlier. She is agreeable to participating in PT. OBJECTIVE: PAIN: No c/o pain BED MOBILITY/TRANSFERS Sit-stand: S Stand-sit: S GAIT Assistive Device: FWW Weight bearing: Full Assist: SBA Distance: 50' Deviation: Step-to pattern THEREX: Reviewed and instructed patient in HEP for LE strengthening and stabilization. STAIRS: 6x4 and 4x6 using U rail/U axillary crutch and a step-to pattern with supervision. Patient requires cueing throughout for proper technique. ASSESSMENT: Patient tolerated session without complaint. She was able to demonstrate ability to perform stair negotiation, although requires cueing throughout for proper pattern. PLAN: Patient to discharge home today, per provider. Follow up with outpatient PT per provider. TREATMENT CODE/TIME: 16 minutes; [id number] ([id number])
== END 2021-02-13 14:12 | disposition home or self-care (01) ==
PROVIDERS: PCP Nurse Practitioner Family; Visit Provider Student in an Organized Health Care Education/Training Program
PROC: (CPT 27447; principal; 2021-02-13 07:45)
DX: M17.12 Unilateral primary osteoarthritis, left knee (principal); I25.10 Atherosclerotic heart disease of native coronary artery without angina pectoris; I10 Essential (primary) hypertension
CPT/HCPCS: 27447; C1776; 97162; 97530; J0690; J1100; J1885; J2001; J2250; J2370; J2405

== ENCOUNTER 2021-02-26 14:00 | Outpatient (CLI) | payer MEDICARE, BC, SELFPAY ==
--- NOTE | 2021-02-26 10:30 | DI.RAD_ITS ---
Exam(s) XR STANDING ALIGNMENT EXAM: XR STANDING ALIGNMENT CLINICAL HISTORY: 1ST POST OP L TKA. TECHNIQUE: 2D digital imaging was performed. COMPARISON: CR XR STANDING ALIGNMENT from 02/06/2021 FINDINGS: Compared to 02/06/2021 there has been interval surgery with placement of a left knee prosthesis. Com ponents appear to be in satisfactory position alignment. There is advanced narrowing of the medial compartment of the opposite-right knee and marginal osteoph ytes in the medial compartment of the right knee. Hips appear unremarkable. Ankles appear unremarkable. No osseous lesions. IMPRESSION: DATA REPOSITORY: RADIATION DOSE DELIVERED:
--- NOTE | 2021-02-26 10:30 | DI.RAD_ITS ---
Exam(s) XR KNEE LT 1V EXAM: XR KNEE LT 1V CLINICAL HISTORY: 1ST POST OP L TKA. TECHNIQUE: 2D digital imaging was performed. COMPARISON: CR XR KNEE LT 4V AP,LAT,SMOOTH,PAT from 12/04/2020 FINDINGS: Single lateral view of the left knee reveals satisfactory position alignment of the components of the prosthesis. No fracture or loosening evident. IMPRESSION: DATA REPOSITORY: RADIATION DOSE DELIVERED:
== END 2021-02-26 14:01 | disposition home or self-care (01) ==
LOC: DIORS 14:00
PROVIDERS: PCP Nurse Practitioner Family; Referring Provider Nurse Practitioner Family; Visit Provider Physician Assistant Surgical
DX: Z96.652 Presence of left artificial knee joint (principal); Z47.1 Aftercare following joint replacement surgery
CPT/HCPCS: 73560; 77073

== ENCOUNTER → 2021-03-01 10:37 | Outpatient (BNVA) | payer MEDICARE, BC, SELFPAY | PROVIDERS: PCP Nurse Practitioner Family; Referring Provider Nurse Practitioner Family; Visit Provider Internal Medicine Cardiovascular Disease | DX: I25.10 Atherosclerotic heart disease of native coronary artery without angina pectoris (principal); I10 Essential (primary) hypertension; I65.29 Occlusion and stenosis of unspecified carotid artery | CPT/HCPCS: 99213 ==

== ENCOUNTER 2021-03-12 01:42 | Outpatient (CLI) | payer MEDICARE, BC, SELFPAY ==
--- NOTE | 2021-03-12 06:45 | DI.US_ITS ---
Exam(s) US CAROTID EXAM: US CAROTID CLINICAL HISTORY: carotid stenosis,I65.29,OCCLUSION. TECHNIQUE: Ultrasound carotids performed using grayscale, color-flow, and spectral Doppler imaging. COMPARISON: US US OR ANESTHESIA from 02/13/2021 FINDINGS: RIGHT CAROTID ARTERY: Mild plaque noted at the carotid bifurcation. No elevated velocity in the proximal right internal ca rotid artery but mildly elevated velocity in the distal right ICA in the neck. Estimated at 50-69 pe rcent stenosis by velocities but less than that by visual. LEFT CAROTID ARTERY: There is mild plaque also noted at the left carotid bifurcation and in the proximal left ICA. Maximu m systolic velocity 116 centimeters per sec. Consistent with see noted is estimated 50-69 percent (b ut less than that by visual) VERTEBRAL ARTERIES: Antegrade flow. Measurements: R Bulb: 57.8cm/s PS / 18cm/s ED R CCA: 59.1cm/s PS / 15.4cm/s ED R ECA: 84.8cm/s PS / 16.1cm/s ED R ICA Prox: 57.2cm/s PS /19.3cm/s ED R ICA Mid: 61.05cm/s PS / 22.15cm/s ED R ICA Distal: 106.3cm/s PS /35.53cm/s ED R Vert: 52.1cm/s PS / 19.8cm/s ED R SVR: 1.7 R DVR: 2.57 L Bulb: 60.3cm/s PS /19.8cm/s ED L CCA: 74.4cm/s PS / 23.1cm/s ED L ECA: 68.6cm/s PS /14cm/s ED L ICA Prox:115.7cm/s PS / 41.3cm/s ED L ICA Mid: 87.6cm/sPS / 26.4cm/s ED L ICA Distal: 91.7cm/s PS / 33.1cm/s ED L Vert: 64.5cm/s PS / 22.3cm/s ED L SVR: 1.56 L DVR: 1.79 IMPRESSION: Mild-moderate stenosis in the carotid bulb/proximal internal carotid arteries bilaterally, less so by visual inspection. No high-grade stenosis. Flow in both vertebral arteries is antegrade. Criteria for Carotid Stenosis: Normal: ICA PSV <125 cm/s no plaque or intimal thickening is visible. <50% stenosis: ICA PSV <125 cm/s and plaque or intimal thickening is visible. 50-69% stenosis: ICA PSV is 125-250 cm/s and plaque is visible. >70% stenosis to near occlusion: ICA PSV >250 cm/s with visible plaque and luminal narrowing. DATA REPOSITORY:
== END 2021-03-12 02:02 ==
PROVIDERS: PCP Nurse Practitioner Family; Visit Provider Internal Medicine Cardiovascular Disease
DX: I65.23 Occlusion and stenosis of bilateral carotid arteries (principal)
CPT/HCPCS: 93880

== ENCOUNTER 2021-03-21 20:17 | Outpatient (REF) | payer MEDICARE, BC, SELFPAY ==
[2021-03-21 22:21] LABS: Bilirubin Negative (Negative); Blood Moderate (Negative); Clarity Clear (Clear); Glucose Negative (Negative); Ketones Negative (Negative); Leukocyte Esterase Small (Negative); Nitrite Negative (Negative); Specific Gravity 1.015 (1.005-1.025); Urobilinogen 0.2 EU/dL (Up TO 0.2)
[2021-03-21 22:22] LABS: Bacteria Moderate HPF (Negative); C & S Indicated? Yes; Casts Negative LPF (Negative); Crystals Negative HPF (Negative); Epithelial Cells Few HPF (Negative); Mucus Negative (Negative)
== END 2021-03-21 20:18 | disposition home or self-care (01) ==
LOC: NCHCN 20:17
PROVIDERS: PCP Nurse Practitioner Family; Visit Provider Family Medicine
DX: N39.0 Urinary tract infection, site not specified (principal)
CPT/HCPCS: 87077; 81003; 81015; 87086; 87186

== ENCOUNTER → 2021-03-30 10:22 | Outpatient (BNVA) | payer MEDICARE, BC, SELFPAY | PROVIDERS: PCP Nurse Practitioner Family; Referring Provider Nurse Practitioner Family; Visit Provider Student in an Organized Health Care Education/Training Program | DX: Z47.1 Aftercare following joint replacement surgery (principal); Z96.652 Presence of left artificial knee joint ==

== ENCOUNTER 2021-05-01 22:42 | Outpatient (REF) | payer MEDICARE, BC, SELFPAY | END 2021-05-01 22:43 | disposition home or self-care (01) | LOC: LBN 22:42 | PROVIDERS: PCP Nurse Practitioner Family; Visit Provider Nurse Practitioner Family | DX: N39.0 Urinary tract infection, site not specified (principal) | CPT/HCPCS: 87077; 87086; 87186 ==

== ENCOUNTER → 2021-05-10 10:33 | Outpatient (BNVA) | payer MEDICARE, BC, SELFPAY | PROVIDERS: PCP Nurse Practitioner Family; Referring Provider Nurse Practitioner Family | DX: Z47.1 Aftercare following joint replacement surgery (principal); Z96.652 Presence of left artificial knee joint ==

== ENCOUNTER → 2021-06-28 09:28 | Outpatient (BNVA) | payer MEDICARE, BC, SELFPAY | PROVIDERS: PCP Nurse Practitioner Family; Referring Provider Nurse Practitioner Family | DX: Z96.652 Presence of left artificial knee joint (principal) ==

== ENCOUNTER → 2021-10-11 09:37 | Outpatient (BNVA) | payer MEDICARE, SELFPAY | PROVIDERS: PCP Nurse Practitioner Family; Referring Provider Nurse Practitioner Family; Visit Provider Student in an Organized Health Care Education/Training Program | DX: M65.331 Trigger finger, right middle finger (principal) | CPT/HCPCS: 20550; J1030 ==

== ENCOUNTER 2021-11-13 09:01 | Day surgery (SDC) | payer MEDICARE, SELFPAY ==
--- NOTE | 2021-11-13 07:55 | W.PM.DSUDISC ---
Discharge Plan Disposition Patient Disposition: HOME Condition: Good Discharge Details Reason For Visit: Right Middle Finger trigger release Attending Provider: Antwan Carlos Primary Care Provider: Mini Hernandez Home Meds and New Rx's Prescriptions: New hydrocodone-acetaminophen 5-325 mg tablet 1 tab PO Q6H PRNQty: 5 0RF ibuprofen 600 mg tablet 600 mg PO TID Qty: 15 0RF Continued estradiol 0.01 % (0.1 mg/gram) cream 1 gm VG .2X/WEEK ezetimibe 10 mg tablet 10 mg PO DAILY 90 Days Qty: 90 2RF aspirin [Adult Aspirin Regimen] 81 mg tablet,delayed release (DR/EC) 81 mg PO DAILY ascorbic acid (vitamin C) 500 mg tablet extended release 1,000 mg PO DAILY coenzyme Q10 [Co Q-10] 10 mg capsule 10 mg PO DAILY multivitamin [One Daily] 1 EACH tablet 1 ea PO DAILY nitroglycerin [Nitrostat] 0.4 MG tablet, sublingual 0.4 mg Sublingual PRN Qty: 25 Label Comments: 08/04/17 Has not had to use claudio LANDRN Zyrtec 10 MG capsule 10 mg PO DAILY Qty: 90 Rx Instructions: BRAND NAME MEDICALLY NECESSARY FLONASE 16 GM SPRAY.SUSP 1 spray NS DAILY PRNQty: 3 Label Comments: 11/15/14 per pt uses at [facility] Rx Instructions: EACH NOSTRIL levothyroxine [Synthroid] 100 MCG tablet 100 mcg PO DAILY Qty: 90 cholecalciferol (vitamin D3) 1,000 UNIT tablet 1,000 unit PO DAILY Qty: 3 losartan [Cozaar] 50 mg tablet 50 mg PO BID Qty: 90 metformin 500 mg tablet 500 mg PO DAILY amlodipine 2.5 mg tablet 2.5 mg PO BID Qty: 180 4RF acetaminophen 500 mg tablet 500 mg PO Q6H PRN (Reason: pain) Qty: 60 2RF ondansetron 4 mg tablet,disintegrating 4 mg PO Q8H PRNQty: 12 0RF atorvastatin 80 mg tablet 80 mg PO HS Discharge Instructions Stand Alone Forms: Terrance Marie Finger Release Activity:: Activity as Tolerated Remove Dressings/Wound Care:: 72 hours Shower/Bathe:: 72 hours Diet:: As Tolerated Discharge Orders Discharge Orders: Discharge Order (Routine); Ordered 11/13/21 Ordered By: Gretchen Mazariegos DS: Diagnosis Discharge Diagnosis (1) Trigger finger, right middle finger: Status: Acute
[2021-11-13 09:15] VITALS: BP 126/72; PULSE 82; RESP 18; TEMP 36.6; O2SAT 99
[2021-11-13] MEDS: Sodium Bicarbonate 50 MEQ/50 ML SYR (11:24)
[2021-11-13] MEDS: Lidocaine 1% Multi-Dose W/EPI 1/100,000 50 ML VIAL (11:24)
[2021-11-13 11:40] VITALS: BP 122/77; PULSE 76; RESP 18; TEMP 36.4; O2SAT 100
--- NOTE | 2021-11-13 12:44 | ROE_ITS ---
Date of service: 11/13/21 Time of Service: 12:00 Operative Note Operative Note DATE OF PROCEDURE: 11/13/21 PRE-OP DIAGNOSIS: Right Middle Finger Trigger Finger POST-OP DIAGNOSIS: same PROCEDURE: Trigger Finger Release - Right Middle Finger SURGEON: Antwan Carlos Refer to Anesthesia Record PATHOLOGY: none sent COMPLICATIONS: None Patient was transported to: same day Patient's condition: stable Indications: I have seen Tonya in clinic for symptoms of a trigger finger. The catching, clicking, locking, and pain limited function. The diagnosis of trigger finger was evident. The symptoms had not responded to conservative measures. I discussed trigger finger release with the patient. I reviewed the risks of the procedure to include, but not limited to, bleeding, infection, pain, stiffness, incomplete release, damage to nerves or vessels, continued catching, recurrence. Despite these risks, the patient elected to proceed. Findings: There was a tightened A1 brenna which was released. The flexor tendons were inspected and the patient was able to move the finger without any catching, clicking, or locking. Procedure Description: Tonya was greeted in the preoperative holding area where the correct side was identified and marked. The consent was reviewed with the patient and signed. All questions were answered. She was taken back to the operating room. The patient was placed into the supine position on the operating room table with the right arm on an arm board. All bony prominences were well padded. No prophylactic antibiotics were administered since this was a clean, elective hand surgical case. The right arm was then prepped with Chloraprep and draped in a standard fashion with stockinette and extremity drape. A timeout to confirm correct identity, side and site, procedure, allergies, anesthesia, and medical concerns was performed. The surgical site was marked as a longitudinal incision directly over the A1 brenna of the involved digit. This was confirmed with palpation during finger flexion. This area, overlying the metacarpal head, was then anesthetized with 1% Lidocaine. The patient tolerated this well and once the anesthetic had setup, the procedure began. A longitudinal incision was made through skin only, approximately 1cm. The deep tissues were dissected bluntly. Once the A1 brenna and flexor tendons were identified the soft tissue including neurovascular structures were retracted medially and laterally. There were no crossing str uctures over the A1 brenna. The proximal edge of the brenna was identified and the brenna was incised with tenotomy scissors. There was a release of the tendons once this was fully released. The tendons were then removed from the wound and inspected. Excess synovium was resected. The tendons were then returned and the patient was asked to move the finger into deep flexion and back to extension. There was no recreation of the pre-operative symptoms. The hand was then once more inspected for any A0 brenna or area of possible constriction. The wound was then irrigated and the skin was closed with a 4-0 Nylon. This was dressed with gauze and a Conform dressing. The patient tolerated the procedure well and was returned to the Same Day Surgery area in a stable condition suffering no known complication.
== END 2021-11-13 12:05 | disposition home or self-care (01) ==
PROVIDERS: PCP Nurse Practitioner Family; Visit Provider Student in an Organized Health Care Education/Training Program
PROC: (CPT 26055; principal; 2021-11-13 13:30)
DX: M65.331 Trigger finger, right middle finger (principal); D64.9 Anemia, unspecified; E78.5 Hyperlipidemia, unspecified; E03.9 Hypothyroidism, unspecified; I10 Essential (primary) hypertension
CPT/HCPCS: 26055

== ENCOUNTER → 2021-11-22 09:02 | Outpatient (BNVA) | payer MEDICARE, SELFPAY | PROVIDERS: PCP Nurse Practitioner Family; Referring Provider Nurse Practitioner Family; Visit Provider Physician Assistant | DX: Z47.89 Encounter for other orthopedic aftercare (principal); M65.331 Trigger finger, right middle finger ==

== ENCOUNTER 2022-01-04 17:40 | Outpatient (REF) | payer MEDICARE, SELFPAY ==
[2022-01-04 16:49] LABS: Calculated LDL 66 mg/dL (<100); Cholesterol 150 mg/dL (<200); HDL Cholesterol 76 mg/dL (40-60); Triglyceride 40 mg/dL (<150)
== END 2022-01-04 17:41 | disposition home or self-care (01) ==
LOC: NCHCN 17:40
PROVIDERS: PCP Nurse Practitioner Family; Visit Provider Nurse Practitioner Family
DX: E11.9 Type 2 diabetes mellitus without complications (principal)
CPT/HCPCS: 80061; 84443

== ENCOUNTER 2022-01-09 16:16 | Outpatient (REF) | payer MEDICARE, SELFPAY ==
[2022-01-09 19:01] LABS: Bilirubin Negative (Negative); Blood Trace-intact (Negative); Clarity Clear (Clear); Glucose Negative (Negative); Ketones Trace mg/dL (Negative); Leukocyte Esterase Large (Negative); Nitrite Negative (Negative); Specific Gravity 1.025 (1.005-1.025); Urobilinogen 0.2 EU/dL (Up TO 0.2)
[2022-01-09 19:14] LABS: Bacteria Negative HPF (Negative); C & S Indicated? Yes; Casts Negative LPF (Negative); Crystals Negative HPF (Negative); Epithelial Cells Rare HPF (Negative); Mucus Negative (Negative); Other Cells Negative (Negative); RBC 0-2 HPF (0-2); WBC >50 HPF (0-5)
== END 2022-01-09 16:17 | disposition home or self-care (01) ==
LOC: NCHCN 16:16
PROVIDERS: PCP Nurse Practitioner Family; Visit Provider Nurse Practitioner Family
DX: R30.0 Dysuria (principal)
CPT/HCPCS: 81003; 81015; 87086

== ENCOUNTER 2022-02-14 10:39 | Outpatient (CLI) | payer MEDICARE, SELFPAY ==
--- NOTE | 2022-02-14 10:30 | DI.RAD_ITS ---
Exam(s) XR KNEE LT 2V AP,LAT EXAM: XR KNEE LT 2V AP,LAT CLINICAL HISTORY: L TKR TECHNIQUE: COMPARISON: CR XR KNEE LT 1V from 02/26/2021 FINDINGS: Two views were obtained. 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 The components appear well seated. No other significant bony abnormality seen. IMPRESSION: RADIATION DOSE DELIVERED: Total DLP
== END 2022-02-14 10:40 | disposition home or self-care (01) ==
LOC: DIORS 10:39
PROVIDERS: PCP Nurse Practitioner Family; Referring Provider Nurse Practitioner Family; Visit Provider Physician Assistant
DX: Z96.652 Presence of left artificial knee joint (principal)
CPT/HCPCS: 99214; 73560

== ENCOUNTER → 2022-03-08 00:30 | Outpatient (CLI) | payer MEDICARE, SELFPAY ==
--- NOTE | 2022-03-08 10:25 | DI.DEXA_ITS ---
Exam(s) XR DEXA BONE DENSITY W/WO RADHIKA EXAM: XR DEXA BONE DENSITY W/WO RADHIKA CLINICAL HISTORY: H/O NORMAL MENOPAUSE, Z78.0; SCREENING FOR OSTEOPOROSIS, Z13.820 TECHNIQUE: COMPARISON: No exams were available for comparison FINDINGS: Lateral Spine Image: Unremarkable. No compression deformities identified. Left hip: Total T-Score: -1.4 Total Z-Score: 0.2 T- and Z-scores: Findings are consistent with osteopenia. Lumbar Spine: Total T-Score: -1.4 Total Z-Score: 0.8 T- and Z-scores: Findings are consistent with osteopenia. IMPRESSION: No evidence of osteoporosis.
== END ==
PROVIDERS: PCP Nurse Practitioner Family; Visit Provider Nurse Practitioner Family
DX: Z78.0 Asymptomatic menopausal state (principal); Z13.820 Encounter for screening for osteoporosis; M85.89 Other specified disorders of bone density and structure, multiple sites
CPT/HCPCS: 77080

== ENCOUNTER 2022-04-02 19:01 | Outpatient (REF) | payer MEDICARE, SELFPAY ==
[2022-04-02 15:46] LABS: Anion Gap 5.7 mmol/L (3-11); BUN 19 mg/dL (7-18); CO2 30.3 mmol/L (21.0-32.0); CREATININE 0.7 mg/dL (0.55-1.02); Chloride 102 mmol/L (98-107); Estimated GFR 91.83 (mL/min/1.73m2); Glucose 127 mg/dL (74-106); Potassium 3.6 mmol/L (3.5-5.1); Sodium 138 mmol/L (136-145)
[2022-04-02 16:33] LABS: Hemoglobin A1C 6.4 % (<5.7)
== END 2022-04-02 19:02 | disposition home or self-care (01) ==
LOC: NCHCN 19:01
PROVIDERS: PCP Nurse Practitioner Family; Visit Provider Nurse Practitioner Family
DX: E11.9 Type 2 diabetes mellitus without complications (principal); I10 Essential (primary) hypertension
CPT/HCPCS: 80048; 83036

== ENCOUNTER 2023-05-02 20:51 | Outpatient (REF) | payer MEDICARE, SELFPAY ==
[2023-05-02 19:56] LABS: Abs Immature Grans 0.01 10^3/uL (0.0-0.06); Absolute Basophil Count 0.04 10^3/uL (0.0-0.2); Absolute Lymphocyte Count 2.75 10^3/uL (1.2-3.4); Absolute Monocyte Count 0.42 10^3/uL (0.1-0.8); Absolute Neutrophil Count 2.98 10^3/uL (1.2-6.7); Basophils % 0.6; Eosinophils % 3.1; HCT 39.7 % (36.0-46.0); Immature Grans % 0.2; MCHC 32.7 % (32.0-36.0); MCV 92 fL (80-95); Monocytes % 6.6; Neutrophils % 46.5; Platelet Count 253 10^3/uL (130-400); RBC 4.34 10^6/uL (3.93-5.22); RDW 13.6 % (11.7-14.6); RDW-SD 45.9 fL
[2023-05-02 20:25] LABS: ALT 38 U/L (14-59); AST 27 U/L (15-37); Albumin 3.6 g/dL (3.4-5.0); Alkaline Phosphatase 79 U/L (46-116); Anion Gap 6.2 mmol/L (3-11); BUN 14 mg/dL (7-18); Bilirubin, Total 0.4 mg/dL (0.2-1.0); CO2 29.8 mmol/L (21.0-32.0); CREATININE 0.8 mg/dL (0.55-1.02); Calcium 9.1 mg/dL (8.5-10.1); Calculated LDL 71 mg/dL (<100); Chloride 103 mmol/L (98-107); Cholesterol 176 mg/dL (<200); Estimated GFR 77.75 (mL/min/1.73m2); Glucose 83 mg/dL (74-106); HDL Cholesterol 96 mg/dL (40-60); Potassium 4.1 mmol/L (3.5-5.1); Sodium 139 mmol/L (136-145); TSH 1.79 uIU/mL (0.36-3.74); Total Protein 6.7 g/dL (6.4-8.2); Triglyceride 48 mg/dL (<150)
[2023-05-02 20:44] LABS: FREE T4 1.24 ng/dL (0.76-1.46)
== END 2023-05-02 20:52 | disposition home or self-care (01) ==
LOC: NCHCN 20:51
PROVIDERS: PCP Nurse Practitioner Family; Visit Provider Nurse Practitioner Family
DX: E03.9 Hypothyroidism, unspecified (principal); E04.9 Nontoxic goiter, unspecified; E11.9 Type 2 diabetes mellitus without complications; E78.5 Hyperlipidemia, unspecified; I10 Essential (primary) hypertension
CPT/HCPCS: 80053; 80061; 83036; 84439; 84443; 85025

== ENCOUNTER → 2023-05-13 00:53 | Outpatient (CLI) | payer MEDICARE, SELFPAY ==
--- NOTE | 2023-05-13 | DI.US_ITS ---
Exam(s) US THYROID EXAM: US THYROID CLINICAL HISTORY: GOITER, E04.9, NONTOXIC GOITER, ? ENLARGED THYROID, ABNL EXAM. TECHNIQUE: Ultrasound thyroid performed using standard protocol. COMPARISON: No exams were available for comparison FINDINGS: ISTHMUS: 1.5 mm RIGHT LOBE: Size: 3.1 x 1 x 0.9 cm Echogenicity: Normal. Vascularity: Normal. Nodules: None. LEFT LOBE: Size: 3.2 x 1 x 0.9 cm Echogenicity: Normal. Vascularity: Normal. Nodules: None. OTHER FINDINGS: Sonographically benign-appearing lymph nodes are seen in the neck bilaterally. IMPRESSION: Normal sonographic appearance of the thyroid gland. DATA REPOSITORY:
== END ==
PROVIDERS: PCP Nurse Practitioner Family; Visit Provider Nurse Practitioner Family
DX: E04.9 Nontoxic goiter, unspecified (principal)
CPT/HCPCS: 76536

== ENCOUNTER 2024-03-05 13:40 | Outpatient (REF) | payer MEDICARE, SELFPAY ==
[2024-03-05 14:47] LABS: Abs Immature Grans 0.02 10^3/uL (0.0-0.06); Absolute Basophil Count 0.07 10^3/uL (0.0-0.2); Absolute Eosinophil Count 0.27 10^3/uL (0.0-0.7); Absolute Lymphocyte Count 2.48 10^3/uL (1.2-3.4); Absolute Monocyte Count 0.43 10^3/uL (0.1-0.8); Absolute Neutrophil Count 4.45 10^3/uL (1.2-6.7); Basophils % 0.9 %; Eosinophils % 3.5 %; HCT 43.1 % (36.0-46.0); HGB 14.1 g/dL (11.2-15.7); Immature Grans % 0.3 %; Lymphocytes % 32.1 %; MCH 31.3 pg (27.0-33.0); MCHC 32.7 % (32.0-36.0); MCV 96 fL (80-95); MPV 10.2 fL (8.0-11.0); Monocytes % 5.6 %; Neutrophils % 57.6 %; Platelet Count 228 10^3/uL (130-400); RBC 4.51 10^6/uL (3.93-5.22); RDW 12.9 % (11.7-14.6); RDW-SD 45.5 fL; WBC 7.72 10^3/uL (4.4-10.8)
[2024-03-05 15:19] LABS: ALT 30 U/L (14-59); AST 27 U/L (15-37); Albumin 3.6 g/dL (3.4-5.0); Alkaline Phosphatase 78 U/L (46-116); Anion Gap 5.9 mmol/L (3-11); BUN 16 mg/dL (7-18); Bilirubin, Total 0.49 mg/dL (0.2-1.0); CO2 32.1 mmol/L (21.0-32.0); CREATININE 0.8 mg/dL (0.55-1.02); Calcium 9.3 mg/dL (8.5-10.1); Chloride 107 mmol/L (98-107); Estimated GFR 77.75 (mL/min/1.73m2); Glucose 165 mg/dL (74-106); Potassium 4.1 mmol/L (3.5-5.1); Sodium 145 mmol/L (136-145); TSH (W/Ref FT4) 0.97 uIU/mL (0.36-3.74); Total Protein 7.4 g/dL (6.4-8.2)
[2024-03-05 16:08] LABS: COMMENT (LAB VIEW ONLY) 120.06 mg/dL; Microalb ug/mg Crea 29.7 ug/mg Cr
== END 2024-03-05 13:41 | disposition home or self-care (01) ==
LOC: NCHCN 13:40
PROVIDERS: PCP Nurse Practitioner Family; Visit Provider Nurse Practitioner Family
DX: E11.9 Type 2 diabetes mellitus without complications (principal)
CPT/HCPCS: 80053; 82043; 82570; 83036; 84443; 85025